=== PATIENT | female | born 1990 | race Caucasian/White ===

== ENCOUNTER → 2017-08-04 | Outpatient (CLI) | DX: N89.5 Stricture and atresia of vagina (principal) ==

== ENCOUNTER → 2017-08-10 | Day surgery (SDC) | payer BC ==
[~2017-08-10] VITALS: Ht 165.1 cm; Wt 42.7 kg
[~2017-08-10] MED LIST: ACETAMINOPHEN 1000 MG/100 ML 100 ML IV ONE; CHLORHEXIDINE GLUCONATE 2 % 1 PACK (2 CLOTHS) TOPICAL PRN; DEXAMETHASONE SOD PHOS 4 MG/ML VIAL IV ONE; DO NOT ADM ANY ANTICOAGULANT DRUGS PRN; KETOROLAC TROMETHAMINE 30 MG/ML (IVP) VIAL IV PUSH ONE; LACTATED RINGER'S 1000 ML IV PRN; LIDOCAINE 1%/EPINEPHrine 1:100,000 SOLN 20 ML VIAL ONE; LIDOCAINE HCL 1% PF 5 ML SYRINGE OTHER ONE; METOPROLOL TARTRATE 25 MG TAB PO PRN; MIDAZOLAM HCL 2 MG/2 ML VIAL ONE; ONDANSETRON HCL 4 MG/2 ML VIAL IV ONE; ONDANSETRON HCL 4 MG/2 ML VIAL IVP PRN; PHENYLEPH/NS 1000 MCG/10 ML SYR IV ONE; POVIDONE IODINE 5% (ANTISEPSIS KIT) 4 APPLICATIONS EACH NARE PRN; PROPOFOL 200 MG/20 ML AMP IV ONE; ROCURONIUM INJ 50 MG/5 ML SYRINGE IV PUSH ONE; SODIUM CHLORID 0.9% 500 ML IV PRN; SODIUM CHLORIDE 0.9% FLUSH 10 ML FLUSH IV FLUSH PRN; SODIUM CHLORIDE 0.9% FLUSH 10 ML FLUSH IV FLUSH SCH; SUCCINYLCHOLINE CHLORIDE 100 MG/5 ML SYRINGE IV PUSH ONE; VANC250C2 PO; diphenhydrAMINE HCL 25 MG CAP PO PRN; oxyCODONE/ACETAMINOPHEN 5 MG/325 MG TAB PO PRN
[2017-08-10 07:16] LABS: AUTOMATED NEUTROPHIL # 2.7 TH/MM3 (1.8-7.7); BASOPHIL % 0.7 % (0.0-2.0); EOSINOPHIL # 0.1 TH/MM3 (0-0.4); EOSINOPHIL % 2.6 % (0.0-4.0); HEMATOCRIT 38.7 % (35.0-46.0); HEMOGLOBIN 13.4 GM/DL (11.6-15.3); LYMPH % 34.8 % (9.0-44.0); LYMPHOCYTE # 1.8 TH/MM3 (1.0-4.8); MEAN CELL VOLUME 90.2 FL (80.0-100.0); MEAN CORPUSCULAR HEMOGLOBIN 31.2 PG (27.0-34.0); MEAN CORPUSCULAR HGB CONC 34.5 % (32.0-36.0); MEAN PLATELET VOLUME 7.2 FL (7.0-11.0); MONO % 10.4 % (0.0-8.0); MONOCYTE # 0.5 TH/MM3 (0-0.9); NEUT % 51.5 % (16.0-70.0); PLATELET COUNT 206 TH/MM3 (150-450); RED BLOOD COUNT 4.29 MIL/MM3 (4.00-5.30); RED CELL DISTRIBUTION WIDTH 13.4 % (11.6-17.2); WHITE BLOOD COUNT 5.2 TH/MM3 (4.0-11.0)
--- NOTE | 2017-08-10 08:32 | PD.OP ---
Operative Report Date of Surgery: August 10, 2017 Preoperative Diagnosis: 1. 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 Right Bartholin's cyst Postoperative Diagnosis: 1. Microperforate hymen 2. Right Bartholin's cyst Procedure: Evaluation under anesthesia, hymenectomy, incision and drainage and placement of a Word catheter of right Bartholin's cyst Anesthesia: General endotracheal Surgeon: Wade Lopez Gate Clerk(s): Danis Hartley OR scrub staff Resident Surgeon: None Operation and Findings: Findings: 1. Normal external female genitalia, microperforate hymen, 2-3 cm right Bartholin's cyst upon incision and drainage clear fluid from the Bartholin's cyst. No evidence of infection. After hymenectomy vagina able to accommodate 2 fingers adequately, normal appearing vaginal mucosa and cervix after hymenectomy performed Specimen: None Estimated blood loss: 50 cc Fluid replacement: 600 cc lactated Ringer's Urine output: 200 cc of urine Via Paris DVT prophylaxis: Sequential compression devices throughout the case Antibiotics: None required Counts: correct x2 Time out done: yes Disposition: Stable to PACU then home Indications: This patient is a 26-year-old G0 female who was seen in the outpatient setting due to inability to have intercourse or pass tampons due to a obstructed vagina, however she was able to have a cycle monthly since menarche, the office exam was difficult to assess but believed to be a semi- imperforate hymen, an MRI was performed and no vaginal septum or mullerian anomalies were appreciated and a right Bartholin's cyst was noted on the MRI. The patient was counseled for evaluation under anesthesia possible hymenectomy and possible right Bartholin's incision and drainage. Description of procedure: The patient was taken to the operating room and placed under general anesthesia, the perineum and the distal vagina were prepped and draped in a sterile fashion, a Paris was inserted, while under anesthesia it was obvious she had a microperforate hymen, using a scalpel a cruciate incision was made through the hymen and the residual hymen segments were removed, the cut edges were reapproximated with running 3-0 Vicryl and hemostasis was appreciated, the proximal vagina was then prepped with Betadine and irrigated and inspection and exam was performed and a normal proximal vagina and cervix were appreciated. A right Bartholin's cyst was confirmed, using a 15 blade it was incised on the medial border just inside the vagina and clear fluid drained spontaneously, a Word catheter was placed with 5 cc of NS in the balloon and the free end was tucked into the vagina. 5cc of 1% lidocaine with epinephrine was at the site of the Bartholin's I&D and hymenectomy for postoperative anesthesia. The surgical sites were hemostatic, the vagina was irrigated and the Paris was removed. The patient was awoken from anesthesia and transferred to PACU in stable condition Wade Lopez MD August 10, 2017 08:32
[2017-08-10 10:25] VITALS: BP 88/55; PULSE 76; RESP 16; TEMP 97; O2SAT 97
== END | disposition home or self-care (01) ==
LOC: HSDC 05:48 → EDUNIT# 07:30
PROVIDERS: ATTEND Obstetrics & Gynecology
DX: Q52.3 Imperforate hymen (principal); N75.0 Cyst of Bartholin's gland
CPT/HCPCS: 00940; 56420; 56700; 84702; 85025; J0131; J0330; J1100; J1885; J2250; J2370; J2405; J3010; J7120

== ENCOUNTER 2017-08-13 00:24 | Emergency (ER) | payer BC ==
[~2017-08-13] VITALS: Ht 162.6 cm; Wt 45.0 kg
[2017-08-13 00:27] VITALS: BP 129/61; PULSE 89; RESP 16; TEMP 98.4; O2SAT 98
[2017-08-13] MEDS ORDERED: SODIUM CHLOR 0.9% 1000 ML INJ 1,000 ML IV SCH (00:53)
--- NOTE | 2017-08-13 00:58 | PD ---
HPI Chief Complaint: Abdominal Pain Time Seen by Provider: 00:48 Travel History International Travel<30 days: No Contact w/Intl Traveler<30days: No Traveled to known affect area: No History of Present Illness HPI Patient comes in complaining of left lower quadrant area crampy pain, associated with diarrhea, patient was given IV antibiotic during the procedure. And she has had this diarrhea ever since... Per patient she has had at least 10 diarrhea movements. Denies any nausea or vomiting or fever. Patient had a hymenectomy as well as a Bartholin's cyst surgery. The patient's surgeon ordered the patient Flagyl however by the time she got the prescription the pharmacy was closed and she was unable to fill it. PFSH Past Medical History Cancer: No Cardiovascular Problems: Yes (IRREGULAR HEART RATE A CHILD) Diabetes: No Endocrine: No Genitourinary: Yes (FREQUENT UTI) Hepatitis: No Hiatal Hernia: No Immune Disorder: No Musculoskeletal: No Neurologic: No Psychiatric: No Reproductive: No Respiratory: No Thyroid Disease: No Tetanus Vaccination: Unknown Influenza Vaccination: No ?: Not LMP: 07/18/2017 Past Surgical History AICD: No Eye Surgery: Yes (EYE SURGERY ) Joint Replacement: No Oral Surgery: Yes Pacemaker: No Other Surgery: Yes (bartholone cyst removal) Social History Alcohol Use: No Tobacco Use: Yes Substance Use: No Allergies-Medications (Allergen,Severity, Reaction): Coded Allergies: ceftriaxone (Verified Allergy, Severe, Rash, 08/13/17) cephalexin (Verified Allergy, Severe, Rash, 08/13/17) Reported Meds & Prescriptions Reported Meds & Active Scripts Active Active Prescriptions or Reported Medications Unobtainable Review of Systems General / Constitutional: No: Fever Eyes: No: Visual changes HENT: No: Headaches Cardiovascular: No: Chest Pain or Discomfort Respiratory: No: Shortness of Breath Gastrointestinal: Positive: Diarrhea, Abdominal Pain Genitourinary: No: Dysuria Musculoskeletal: No: Pain Skin: No Rash Neurologic: No: Weakness Psychiatric: No: Depression Endocrine: No: Polydipsia Hematologic/Lymphatic: No: Easy Bruising Physical Exam Narrative GENERAL: SKIN: Warm and dry. HEAD: Atraumatic. Normocephalic. EYES: Pupils equal and round. No scleral icterus. No injection or drainage. ENT: No nasal bleeding or discharge. Mucous membranes pink and moist. NECK: Trachea midline. No JVD. CARDIOVASCULAR: Regular rate and rhythm. RESPIRATORY: No accessory muscle use. Clear to auscultation. Breath sounds equal bilaterally. GASTROINTESTINAL: Abdomen soft, mild tenderness to percussion over left lower quadrant. nondistended. MUSCULOSKELETAL: Extremities without clubbing, cyanosis, or edema. No obvious deformities. NEUROLOGICAL: Awake and alert. No obvious cranial nerve deficits. Motor grossly within normal limits. Five out of 5 muscle strength in the arms and legs. Normal speech. PSYCHIATRIC: Appropriate mood and affect; insight and judgment normal. Data Data Last Documented VS Vital Signs Date Time Temp Pulse Resp B/P (MAP) Pulse Ox O2 Delivery O2 Flow Rate FiO2 08/13/17 00:27 98.4 89 16 129/61 (83) 98 Orders Orders Complete Blood Count With Diff (08/13/17 00:53) Comprehensive Metabolic Panel (08/13/17 00:53) Lipase (08/13/17 00:53) Iv Access Insert/Monitor (08/13/17 00:53) Ecg Monitoring (08/13/17 00:53) Oximetry (08/13/17 00:53) NPO (08/13/17 00:53) Metronidazole 500 Mg Inj (Flagyl 500 Mg (08/13/17 01:00) Sodium Chlor 0.9% 1000 Ml Inj (Ns 1000 M (08/13/17 00:53) Vancomycin 25 Mg/Ml Liq (Vancomycin 25 M (08/13/17 01:00) Ondansetron Odt (Zofran Odt) (08/13/17 01:00) Vancomycin For Oral Use Only (Vancomycin (08/13/17 02:00) Labs Laboratory Tests Test 08/13/17 02:12 White Blood Count 7.4 TH/MM3 Red Blood Count 4.18 MIL/MM3 Hemoglobin 13.1 GM/DL Hematocrit 38.2 % Mean Corpuscular Volume 91.4 FL Mean Corpuscular Hemoglobin 31.2 PG Mean Corpuscular Hemoglobin Concent 34.2 % Red Cell Distribution Width 13.6 % Platelet Count 216 TH/MM3 Mean Platelet Volume 7.7 FL Neutrophils (%) (Auto) 53.5 % Lymphocytes (%) (Auto) 37.5 % Monocytes (%) (Auto) 7.1 % Eosinophils (%) (Auto) 1.5 % Basophils (%) (Auto) 0.4 % Neutrophils # (Auto) 4.0 TH/MM3 Lymphocytes # (Auto) 2.8 TH/MM3 Monocytes # (Auto) 0.5 TH/MM3 Eosinophils # (Auto) 0.1 TH/MM3 Basophils # (Auto) 0.0 TH/MM3 CBC Comment DIFF FINAL Differential Comment Blood Urea Nitrogen 14 MG/DL Creatinine 0.58 MG/DL Random Glucose 86 MG/DL Total Protein 7.0 GM/DL Albumin 3.6 GM/DL Calcium Level 8.6 MG/DL Alkaline Phosphatase 71 U/L Aspartate Amino Transf (AST/SGOT) 17 U/L Alanine Aminotransferase (ALT/SGPT) 10 U/L Total Bilirubin 0.2 MG/DL Sodium Level 142 MEQ/L Potassium Level 3.6 MEQ/L Chloride Level 109 MEQ/L Carbon Dioxide Level 25.0 MEQ/L Anion Gap 8 MEQ/L Estimat Glomerular Filtration Rate 126 ML/MIN Lipase 73 U/L [facility] Medical Decision Making Medical Screen Exam Complete: Yes Emergency Medical Condition: Yes Medical Record Reviewed: Yes Differential Diagnosis C. difficile colitis versus gastroenteritis versus enteritis versus pancreatitis Narrative Course CBC is without any leukocytosis, anemia or platelet dysfunction Normal kidney liver and pancreatic functions Normal electrolytes No evidence of any dehydration Diagnosis Primary Impression: Enteritis Patient Instructions: Clostridium Difficile Infection (ED), General Instructions Additional Instructions: It is best recommended that you take both the her Flagyl prescription as well as this Vancocin however if it is not affordable to you, the Flagyl alone should be able to work well. As previously mentioned please avoid taking Imodium and instead to use Pepto-Bismol Scripts Vancomycin (Vancomycin) 250 Mg Cap 250 MG PO QID for Infection for 10 Days, #40 CAP 0 Refills Prov: Dyllan Voss MD 08/13/17 Disposition: 01 DISCHARGE HOME Condition: Stable Dyllan Voss MD August 13, 2017 00:58
[2017-08-13] MEDS ORDERED: metroNIDAZOLE 500 MG INJ 100 ML IV ONE (01:00)
[2017-08-13] MEDS ORDERED: VANCOMYCIN 25 MG/ML SOLN 100 ML BOTTLE PO SCH (01:00)
[2017-08-13] MEDS ORDERED: ONDANSETRON ODT 4 MG TAB PO ONE (01:00)
[2017-08-13] MEDS ORDERED: VANCOMYCIN 500 MG VIAL (FOR ORAL USE ONLY) PO ONE (02:00)
[2017-08-13 02:28] LABS: BASOPHIL % 0.4 % (0.0-2.0); EOSINOPHIL # 0.1 TH/MM3 (0-0.4); EOSINOPHIL % 1.5 % (0.0-4.0); HEMATOCRIT 38.2 % (35.0-46.0); HEMOGLOBIN 13.1 GM/DL (11.6-15.3); LYMPH % 37.5 % (9.0-44.0); LYMPHOCYTE # 2.8 TH/MM3 (1.0-4.8); MEAN CELL VOLUME 91.4 FL (80.0-100.0); MEAN CORPUSCULAR HEMOGLOBIN 31.2 PG (27.0-34.0); MEAN CORPUSCULAR HGB CONC 34.2 % (32.0-36.0); MEAN PLATELET VOLUME 7.7 FL (7.0-11.0); MONO % 7.1 % (0.0-8.0); MONOCYTE # 0.5 TH/MM3 (0-0.9); NEUT % 53.5 % (16.0-70.0); PLATELET COUNT 216 TH/MM3 (150-450); RED BLOOD COUNT 4.18 MIL/MM3 (4.00-5.30); RED CELL DISTRIBUTION WIDTH 13.6 % (11.6-17.2); WHITE BLOOD COUNT 7.4 TH/MM3 (4.0-11.0)
[2017-08-13 02:43] LABS: ALBUMIN 3.6 GM/DL (3.4-5.0); ALT (GPT) 10 U/L (10-53); AST (GOT) 17 U/L (15-37); BLOOD UREA NITROGEN 14 MG/DL (7-18); CALCIUM 8.6 MG/DL (8.5-10.1); CHLORIDE 109 MEQ/L (98-107); CREATININE 0.58 MG/DL (0.50-1.00); GLOMERULAR FILTRATION RATE 126 ML/MIN (>89); GLUCOSE,RANDOM 86 MG/DL (74-106); SODIUM (NA) 142 MEQ/L (136-145)
[2017-08-13 02:46] LABS: ALKALINE PHOSPHATASE 71 U/L (45-117); TOTAL BILIRUBIN ADULT 0.2 MG/DL (0.2-1.0)
[2017-08-13] MEDS ORDERED: VANC250C2 PO (03:32)
== END 2017-08-13 03:56 | disposition home or self-care (01) ==
LOC: NEPE 00:24
DX: K52.9 Noninfective gastroenteritis and colitis, unspecified (principal); Z72.0 Tobacco use
CPT/HCPCS: 80053; 83690; 85025; 96365; 99284; J7030

== ENCOUNTER 2017-10-23 19:49 | Inpatient (IN) ==
--- NOTE | 2017-10-23 21:31 | ED ---
HPI General Chief complaint: Arrhythmia/Palpitations Stated complaint: cardiac problems Time Seen by Provider: 10/23/17 21:08 Source: patient Mode of arrival: ambulatory Limitations: no limitations History of Present Illness HPI narrative: 26yo F presents to the ED with c/o palpitations for 2 hours today. Said she has had mitral valve leak and aortic valve enlargement diagnosed on [facility] 4 years ago and was evaluated by repulping supervisor Dr. Monreal from [facility] but has not followed up with cardiology. Said she was suppose to have it surgically repaired but did not follow up with cardiology like she was suppose to. Said she has irregular heart rates but usually palpitations do not last this long. Said she felt dizzy and felt like she was going to pass out but did not. Denies any fever, chest pain, sob, n/v, abdominal, focal weakness. Does not know her family history as she was adopted. Related Data Allergies Allergy/AdvReac Type Severity Reaction Status Date / Time ceftriaxone Allergy Severe Rash Verified 08/13/17 00:26 cephalexin Allergy Severe Rash Verified 08/13/17 00:26 Review of Systems ROS Unobtainable All other systems reviewed negative except as stated in HPI [facility] Medical History Medical History Palpitations (Acute) Social History Social History Substance History: No History of Abuse Second Hand Smoke Exposure: Yes Smoking Status: Light tobacco smoker Tobacco Type: Cigarettes How Often Do You Have a Drink Containing Alcohol: Never Recent Travel in [place] within the Last 8 Weeks: No Recent Out of Country Travel within the Last 8 Weeks: No Immunization History Tetanus Immunization: Never Vaccinated Hx Influenza Vaccine This Season: Yes Exam Narrative Exam Narrative: GENERAL: 26yo F not in distress. SKIN: Focused skin assessment warm/dry. HEAD: Atraumatic. Normocephalic. EYES: Pupils equal and round. No scleral icterus. No injection or drainage. ENT: No nasal bleeding or discharge. Mucous membranes pink and moist. NECK: Trachea midline. No JVD. CARDIOVASCULAR: Regular rate and rhythm. No murmur appreciated. RESPIRATORY: No accessory muscle use. Clear to auscultation. Breath sounds equal bilaterally. GASTROINTESTINAL: Abdomen soft, non-tender, nondistended. MUSCULOSKELETAL: No obvious deformities. No clubbing. No cyanosis. No edema. NEUROLOGICAL: Awake and alert. No obvious cranial nerve deficits. Motor grossly within normal limits. Normal speech. PSYCHIATRIC: Appropriate mood and affect; insight and judgment normal. Course Initial Documented Vital Signs Temperature 99.2 F 10/23/17 20:54 Pulse Rate 65 10/23/17 20:54 Respiratory Rate 16 10/23/17 20:54 Blood Pressure 102/72 10/23/17 20:54 Last Documented Vital Signs Temperature 99.2 F 10/23/17 20:54 Pulse Rate 65 10/23/17 20:54 Respiratory Rate 16 10/23/17 20:54 Blood Pressure 102/72 10/23/17 20:54 Medical Decision Making [facility] Narrative Medical decision making narrative: 26yo F with history of mitral valve leak and enlarged aortic valve from [facility] 4 years ago here with c/o palpiations, dizziness and feeling like she was going to pass out. Pt has abnormal EKG and no prior EKG to compare to. Pt failed to follow up with cardiology as outpatient and since she is symptomatic now, feel that she would benefit from observation and cardiology consult. Labs reviewed, no leukocytosis. H/H normal. Troponin negative. BMP unremarkable. Will admit for observation and cardiology consult. Discussed with Dr. Valencia and accepted to her service for near syncope and abnormal EKG. Differential Diagnosis Differential Diagnosis: Near syncope vs. arrhythmia vs. valvular disease Lab Data Result diagrams: 10/23/17 21:45 10/23/17 21:45 Lab Results 10/23/17 10/23/17 10/23/17 Range/Units 21:45 21:45 21:45 WBC 7.1 (4.0-11.0) th/mm3 RBC 4.29 (4.00-5.30) mil/mm3 Hgb 13.2 (11.6-15.3) gm/dL Hct 38.6 (35.0-46.0) % MCV 89.8 (80.0-100.0) fL MCH 30.6 (27.0-34.0) pg MCHC 34.1 (32.0-36.0) % RDW 13.4 (11.6-17.2) % Plt Count 205 (150-450) th/mm3 MPV 7.6 (7.0-11.0) fL Neut % (Auto) 67.8 (16.0-70.0) % Lymph % (Auto) 23.7 (9.0-44.0) % [place] % (Auto) 7.0 (0.0-8.0) % Eos % (Auto) 1.0 (0.0-4.0) % Baso % (Auto) 0.5 (0.0-2.0) % Neut # (Auto) 4.8 (1.8-7.7) th/mm3 Lymph # (Auto) 1.7 (1.0-4.8) th/mm3 [place] # (Auto) 0.5 (0.0-0.9) th/mm3 Eos # (Auto) 0.1 (0.0-0.4) th/mm3 Baso # (Auto) 0.0 (0.0-0.2) th/mm3 WBC Differential . Differential Comment Auto diff final Sodium 140 (136-145) meq/L Potassium 3.7 (3.5-5.1) meq/L Chloride 109 H (98-107) meq/L Carbon Dioxide 23.4 (21.0-32.0) meq/L Anion Gap 8 (5-15) meq/L BUN 13 (7-18) mg/dL Creatinine 0.56 (0.50-1.00) mg/dL Estimated GFR Greater than 89 (>89) mL/min Random Glucose 79 (74-106) mg/dL Calcium 8.7 (8.5-10.1) mg/dL Troponin I Less than 0.02 L (0.02-0.05) ng/mL TSH 0.895 (0.358-3.740) uIU/mL ECG Data EKG Prior to Arrival: No Attestation: I personally reviewed and interpreted this ECG as follows: Prior ECG tracings: not available for review Interpretation: NSR 72bpm. Normal axis. Incomplete RBBB. TWI V2. Biphasic T wave in V3. Discharge Plan Discharge Disposition Patient Disposition: 30 Still Patient Discharge Details Diagnosis: Arrhythmia Physicians Team ED Provider: Gila Benedict Primary Care Provider: UNKNOWN, Attending Provider: Denise Valencia Status ED Status: Admitted Observation Patient
[2017-10-23 22:12] LABS: Hematocrit 38.6 % (35.0-46.0); Hemoglobin 13.2 gm/dL (11.6-15.3); Mean Corpuscular HGB Conc 34.1 % (32.0-36.0); Mean Corpuscular Hemoglobin 30.6 pg (27.0-34.0); Mean Corpuscular Volume 89.8 fL (80.0-100.0); Platelet Count 205 th/mm3 (150-450); Red Blood Count 4.29 mil/mm3 (4.00-5.30); Red Cell Distribution Width 13.4 % (11.6-17.2); White Blood Count 7.1 th/mm3 (4.0-11.0)
[2017-10-23 22:13] LABS: Baso % (Auto) 0.5 % (0.0-2.0); Eos # (Auto) 0.1 th/mm3 (0.0-0.4); Lymph # (Auto) 1.7 th/mm3 (1.0-4.8); Lymph % (Auto) 23.7 % (9.0-44.0); Mean Platelet Volume 7.6 fL (7.0-11.0); Mono # (Auto) 0.5 th/mm3 (0.0-0.9); Neut # (Auto) 4.8 th/mm3 (1.8-7.7); Neut % (Auto) 67.8 % (16.0-70.0)
[2017-10-23 22:41] LABS: Anion Gap 8 meq/L (5-15); Blood Urea Nitrogen 13 mg/dL (7-18); Calcium 8.7 mg/dL (8.5-10.1); Carbon Dioxide 23.4 meq/L (21.0-32.0); Chloride 109 meq/L (98-107); Glomerular Filtration Rate Greater Than 89 mL/min (>89); Glucose,Random 79 mg/dL (74-106); Potassium 3.7 meq/L (3.5-5.1); Sodium 140 meq/L (136-145)
[2017-10-23 22:51] LABS: Thyroid Stimulating Hormone 0.895 uIU/mL (0.358-3.740)
[2017-10-24] MEDS ORDERED: Bisacodyl 10 MG Supp RECTAL PRN (00:20)
--- NOTE | 2017-10-24 00:24 | P.HP ---
History of Present Illness Service: [facility] Primary Care Physician: UNKNOWN History of Present Illness: 26-year-old female with a past medical history significant for mitral valve prolapse and a "abnormal EKG" 4 years ago presents the emergency department for evaluation of palpitations. The patient reports she has palpitations for approximately 2 hours, felt faint and decided to come to the emergency room for further evaluation. The patient had a MOIS[facility] 4 years ago which was normal and she was instructed to follow-up with the junior legal secretary however she was never able to do so. The patient denies having any chest pain or shortness of breath. No abdominal pain. No nausea/vomiting. Review of Systems Denies fever or chills Denies blurry vision, otorrhea, rhinorrhea Denies sore throat and cough No chest pain No shortness of breath or wheezing No abdominal pain Denies constipation/diarrhea/nausea/vomiting Denies muscle pain Denies focal weakness No rashes PMFSH - History History Provided By: Patient - Medical History Medical History: Medical History (Last Updated 10/24/17 @ 00:23 by Denise Valencia MD) Palpitations Septal defect - Surgical History Surgical History: Surgical History (Last Updated 10/24/17 @ 00:23 by Denise Valencia MD) Hx of eye surgery - Family History Family History: Family History (Last Updated 10/24/17 @ 00:23 by Denise Valencia MD) Other Adopted - Tobacco History Second Hand Smoke Exposure: Yes Tobacco Use In Past 30 Days: Yes Smoking Status: Light tobacco smoker Tobacco Type: Cigarettes - Alcohol History How Often Do You Have a Drink Containing Alcohol: Never - Substance Use History Substance History: No History of Abuse - Travel History Recent Travel in the [facility] Within the Last 8 Weeks: No Recent Travel Out of the Country Within the Last 8 Weeks: No - Immunization History Tetanus Immunization: Never Vaccinated Hx Influenza Vaccine This Season: Yes Medications and Allergies Allergies Allergy/AdvReac Type Severity Reaction Status Date / Time ceftriaxone Allergy Severe Rash Verified 08/13/17 00:26 cephalexin Allergy Severe Rash Verified 08/13/17 00:26 Exam Vital signs: Vital Signs 10/23/17 20:54 Temperature 99.2 F Pulse Rate 65 Respiratory Rate 16 Blood Pressure 102/72 Intake & Output 10/23/17 10/23/17 10/24/17 06:59 18:59 06:59 Weight 43.998 kg Narrative: Gen.: No acute distress Head: Normocephalic. Atraumatic. EENT: Pupils equal round and reactive to light. Nose without drainage. Airway intact. Throat without injection. Cardiovascular: Regular rate and rhythm. No murmurs, rubs or gallops. Respiratory: Lungs clear to auscultation bilaterally. No wheezes or rhonchi. Abdomen: Soft, nontender, nondistended. No peritoneal signs. Musculoskeletal: No gross deformities. No edema. Skin: No obvious rashes or erythema. Neuro: Sensory and motor grossly intact. Cranial nerves II through XII grossly intact. Psych: Appropriate mood and affect Results - Labs CBC & Chem 7: 10/23/17 21:45 10/23/17 21:45 Labs: Laboratory Results - last 24 hr 10/23/17 10/23/17 10/23/17 21:45 21:45 21:45 WBC 7.1 RBC 4.29 Hgb 13.2 Hct 38.6 MCV 89.8 MCH 30.6 MCHC 34.1 RDW 13.4 Plt Count 205 MPV 7.6 Neut % (Auto) 67.8 Lymph % (Auto) 23.7 [place] % (Auto) 7.0 Eos % (Auto) 1.0 Baso % (Auto) 0.5 Neut # (Auto) 4.8 Lymph # (Auto) 1.7 [place] # (Auto) 0.5 Eos # (Auto) 0.1 Baso # (Auto) 0.0 WBC Differential . Differential Comment Auto diff final Sodium 140 Potassium 3.7 Chloride 109 H Carbon Dioxide 23.4 Anion Gap 8 BUN 13 Creatinine 0.56 Estimated GFR Greater than 89 Random Glucose 79 Calcium 8.7 Troponin I Less than 0.02 L TSH 0.895 Caprini VTE Risk Assessment Caprini VTE Risk Assessment: No/Low Risk (score <= 1) Caprini Risk Assessment Model: Point Value = 1 Point Value = 2 Point Value = 3 Point Value = 5 Age 41-60 Minor surgery BMI > 25 kg/m2 Swollen legs Varicose veins or History of unexplained or recurrent spontaneous Oral contraceptives or hormone replacement Sepsis (< 1 month) Serious lung disease, including pneumonia (< 1 month) Abnormal pulmonary function Acute myocardial infarction Congestive heart failure (< 1 month) History of inflammatory bowel disease Medical patient at bed rest Age 61-74 Arthroscopic surgery Major open surgery (> 45 min) Laparoscopic surgery (> 45 min) Malignancy Confined to bed (> 72 hours) Immobilizing plaster cast Central venous access Age >= 75 History of VTE Family history of VTE Factor V Leiden Prothrombin [id number] Lupus anticoagulant Anticardiolipin antibodies Elevated serum homocysteine Heparin-induced thrombocytopenia Other congenital or acquired thrombophilia Stroke (< 1 month) Elective arthroplasty Hip, pelvis, or leg fracture Acute spinal cord injury (< 1 month) Prophylaxis Regimen: Total Risk Factor Score Risk Level Prophylaxis Regimen 0-1 Low Early ambulation 2 Moderate Order ONE of the following: *Sequential Compression Device (SCD) *Heparin 5000 units SQ BID 3-4 Higher Order ONE of the following medications: *Heparin 5000 units SQ TID *Enoxaparin/Lovenox 40 mg SQ daily (WT < 150 kg, CrCl > 30 mL/min) *Enoxaparin/Lovenox 30 mg SQ daily (WT < 150 kg, CrCl > 10-29 mL/min) *Enoxaparin/Lovenox 30 mg SQ BID (WT < 150 kg, CrCl > 30 mL/min) AND/OR *Sequential Compression Device (SCD) 5 or more Highest Order ONE of the following medications: *Heparin 5000 units SQ TID (Preferred with Epidurals) *Enoxaparin/Lovenox 40 mg SQ daily (WT < 150 kg, CrCl > 30 mL/min) *Enoxaparin/Lovenox 30 mg SQ daily (WT < 150 kg, CrCl > 10-29 mL/min) *Enoxaparin/Lovenox 30 mg SQ BID (WT < 150 kg, CrCl > 30 mL/min) AND *Sequential Compression Device (SCD) Assessment and Plan - Plan Assessment/plan: 1. Palpitations/lightheadedness/MVP EKG significant for complete right bundle branch block and nonspecific ST changes, personally reviewed Cardiology consulted, appreciate recommendations Echo pending Telemetry FEN N.p.o. Electrolytes: Monitor and replete as needed
[2017-10-24] MEDS: Sod Chloride 0.9% Inj 1,000 ML IV.CONT SCH ×2 (01:35→11:33)
[2017-10-24] MEDS: Acetaminophen 325 MG Tablet PO PRN (05:26)
[2017-10-24 07:38] LABS: Baso % (Auto) 0.5 % (0.0-2.0); Eos # (Auto) 0.2 th/mm3 (0.0-0.4); Eos % (Auto) 4.4 % (0.0-4.0); Hematocrit 37.4 % (35.0-46.0); Hemoglobin 12.6 gm/dL (11.6-15.3); Lymph # (Auto) 1.5 th/mm3 (1.0-4.8); Lymph % (Auto) 27.7 % (9.0-44.0); Mean Corpuscular HGB Conc 33.6 % (32.0-36.0); Mean Corpuscular Hemoglobin 30.3 pg (27.0-34.0); Mean Corpuscular Volume 90.1 fL (80.0-100.0); Mean Platelet Volume 7.5 fL (7.0-11.0); Mono # (Auto) 0.6 th/mm3 (0.0-0.9); Mono % (Auto) 10.5 % (0.0-8.0); Neut % (Auto) 56.9 % (16.0-70.0); Platelet Count 204 th/mm3 (150-450); Red Blood Count 4.15 mil/mm3 (4.00-5.30); Red Cell Distribution Width 13.6 % (11.6-17.2); White Blood Count 5.3 th/mm3 (4.0-11.0)
[2017-10-24 08:07] LABS: Anion Gap 7 meq/L (5-15); Blood Urea Nitrogen 13 mg/dL (7-18); Calcium 8.3 mg/dL (8.5-10.1); Carbon Dioxide 23.6 meq/L (21.0-32.0); Chloride 110 meq/L (98-107); Glomerular Filtration Rate Greater Than 89 mL/min (>89); Glucose,Random 81 mg/dL (74-106); Potassium 3.5 meq/L (3.5-5.1); Sodium 141 meq/L (136-145)
--- NOTE | 2017-10-24 08:58 | P.CONCA ---
<Lul Sheikh - Last Filed: 10/24/17 08:52> History of Present Illness Primary Care Provider: UNKNOWN History of Present Illness: 26-year-old female who presented with lightheadedness, dizziness, and irregular heartbeat. Patient states that yesterday she had sudden onset of sensation of irregular heartbeat. Denies racing heart sensation. History of palpitations in the past, but those felt more like skipped beats rather than irregular sensation. She had associated lightheadedness and dizziness. Symptoms lasted approximately 2 hours and then resolved. She previously saw a accounting/finance tutor approximately 4 years ago in [place]. She was told at that time that she had a leaky heart valve that would need replacement, probably by the time she was 30. EKG shows right bundle branch block. The patient denies any chest pain , lower extremity swelling, orthopnea. The patient states that she gets dyspneic on exertion when walking up half a flight of stairs. She reports a history of "hole in the heart" as a child that spontaneously closed. Telemetry unremarkable overnight except for occasional PAC seen. Review of Systems All other systems reviewed negative except as stated [facility] - History History Provided By: Patient - Medical History Medical History: Medical History (Last Updated 10/24/17 @ 00:23 by Denise Valencia MD) Palpitations Septal defect - Surgical History Surgical History: Surgical History (Last Updated 10/24/17 @ 00:23 by Denise Valencia MD) Hx of eye surgery - Family History Family History: Family History (Last Updated 10/24/17 @ 00:23 by Denise Valencia MD) Other Adopted - Tobacco History Second Hand Smoke Exposure: Yes Tobacco Use In Past 30 Days: Yes Smoking Status: Heavy tobacco smoker Tobacco Type: Cigarettes - Alcohol History How Often Do You Have a Drink Containing Alcohol: Monthly or less - Substance Use History Substance History: No History of Abuse - Travel History Recent Travel in the [place] Within the Last 8 Weeks: No Recent Travel Out of the Country Within the Last 8 Weeks: No - Immunization History Tetanus Immunization: Never Vaccinated Hx Influenza Vaccine This Season: Yes Medications and Allergies Allergies Allergy/AdvReac Type Severity Reaction Status Date / Time ceftriaxone Allergy Severe Rash Verified 08/13/17 00:26 cephalexin Allergy Severe Rash Verified 08/13/17 00:26 Home Medications Medication Instructions Recorded Confirmed Type No Known Home Medications 10/24/17 10/24/17 History Active Medications: Active Medications Acetaminophen (Tylenol) 650 mg PO Q4H PRN PRN Reason: Temp > 100.4/pain Last Admin: 10/24/17 05:26 Dose: 650 mg Al Hydroxide/Mg Hydroxide (Milk Of Magnesia Liq) 30 ml PO Q12H PRN PRN Reason: Mild Constipation Bisacodyl (Dulcolax Supp) 10 mg RECTAL DAILY PRN PRN Reason: SEVERE CONSITIPATION Sodium Chloride (Ns Inj) 1,000 mls @ 100 mls/hr IV.CONT .Q10H DILLAN Last Admin: 10/24/17 01:35 Dose: 100 mls/hr Lactulose (Lactulose Liq) 30 ml PO DAILY PRN PRN Reason: SEVERE CONSITIPATION Sennosides (Senokot) 17.2 mg PO Q12H PRN PRN Reason: Moderate Constipation Exam Vital signs: Vital Signs 10/23/17 20:54 10/24/17 00:00 10/24/17 01:29 Temperature 99.2 F Pulse Rate 65 70 76 Respiratory Rate 16 16 16 Blood Pressure 102/72 101/71 103/66 Pulse Oximetry 98 10/24/17 02:11 10/24/17 04:00 10/24/17 07:05 Temperature 98.1 F Pulse Rate 72 70 80 Respiratory Rate 16 Blood Pressure 103/62 Pulse Oximetry 10/24/17 07:54 Temperature 98.3 F Pulse Rate 72 Respiratory Rate 16 Blood Pressure 102/60 Pulse Oximetry 98 Intake & Output 10/23/17 10/24/17 10/24/17 18:59 06:59 18:59 Weight 97 lb Narrative: GENERAL: Well-developed well-nourished. In no acute distress. NECK: No carotid bruits. No JVD. CARDIOVASCULAR: Regular rate and rhythm with occasional ectopy noted. 2/6 systolic murmur best appreciated at the apex. RESPIRATORY: No accessory muscle use. Clear to auscultation. Breath sounds equal bilaterally. MUSCULOSKELETAL: No clubbing or cyanosis. No edema. NEUROLOGICAL: Awake and alert. Normal speech. Results 10/24/17 07:15 10/24/17 07:15 Cardiac Enzymes 10/23/17 Range/Units 21:45 Troponin I Less than 0.02 L (0.02-0.05) ng/mL CBC 10/23/17 10/24/17 Range/Units 21:45 07:15 WBC 7.1 5.3 (4.0-11.0) th/mm3 RBC 4.29 4.15 (4.00-5.30) mil/mm3 Hgb 13.2 12.6 (11.6-15.3) gm/dL Hct 38.6 37.4 (35.0-46.0) % Plt Count 205 204 (150-450) th/mm3 Neut # (Auto) 4.8 3.0 (1.8-7.7) th/mm3 Lymph # (Auto) 1.7 1.5 (1.0-4.8) th/mm3 Collier # (Auto) 0.5 0.6 (0.0-0.9) th/mm3 Eos # (Auto) 0.1 0.2 (0.0-0.4) th/mm3 Baso # (Auto) 0.0 0.0 (0.0-0.2) th/mm3 Comprehensive Metabolic Panel 10/23/17 10/24/17 Range/Units 21:45 07:15 Sodium 140 141 (136-145) meq/L Potassium 3.7 3.5 (3.5-5.1) meq/L Chloride 109 H 110 H (98-107) meq/L Carbon Dioxide 23.4 23.6 (21.0-32.0) meq/L BUN 13 13 (7-18) mg/dL Creatinine 0.56 0.51 (0.50-1.00) mg/dL Calcium 8.7 8.3 L (8.5-10.1) mg/dL Intake and Output 10/23/17 10/24/17 10/24/17 22:59 06:59 14:59 Other: Weight 97 lb Assessment and Plan - Plan 26-year-old female who presented with lightheadedness, dizziness, and irregular heartbeat. Patient states that yesterday she had sudden onset of sensation of irregular heartbeat. Denies racing heart sensation. History of palpitations in the past, but those felt more like skipped beats rather than irregular sensation. She had associated lightheadedness and dizziness. Symptoms lasted approximately 2 hours and then resolved. Palpitations: Symptoms not consistent with previous benign ectopy. Possible SVT. Check echo. Monitor on telemetry. BP will not tolerate beta-casandra at this time. Vagal maneuver counseling. Heart murmur: Possibly more. Possibly symptomatic. Follow-up echocardiogram results. Discussed Condition With: Patient, hospitalist, Dr. Carpenter <Twan Carpenter - Last Filed: 10/24/17 10:58> History of Present Illness Primary Care Provider: UNKNOWN [facility] - Medical History Medical History: Medical History (Last Updated 10/24/17 @ 00:23 by Denise Valencia MD) Palpitations Septal defect - Surgical History Surgical History: Surgical History (Last Updated 10/24/17 @ 00:23 by Denise Valencia MD) Hx of eye surgery - Family History Family History: Family History (Last Updated 10/24/17 @ 00:23 by Denise Valencia MD) Other Adopted Medications and Allergies Active Medications: Active Medications Acetaminophen (Tylenol) 650 mg PO Q4H PRN PRN Reason: Temp > 100.4/pain Last Admin: 10/24/17 05:26 Dose: 650 mg Al Hydroxide/Mg Hydroxide (Milk Of Magnesia Liq) 30 ml PO Q12H PRN PRN Reason: Mild Constipation Bisacodyl (Dulcolax Supp) 10 mg RECTAL DAILY PRN PRN Reason: SEVERE CONSITIPATION Sodium Chloride (Ns Inj) 1,000 mls @ 100 mls/hr IV.CONT .Q10H DILLAN Last Admin: 10/24/17 01:35 Dose: 100 mls/hr Lactulose (Lactulose Liq) 30 ml PO DAILY PRN PRN Reason: SEVERE CONSITIPATION Sennosides (Senokot) 17.2 mg PO Q12H PRN PRN Reason: Moderate Constipation Exam Vital signs: Vital Signs 10/23/17 20:54 10/24/17 00:00 10/24/17 01:29 Temperature 99.2 F Pulse Rate 65 70 76 Respiratory Rate 16 16 16 Blood Pressure 102/72 101/71 103/66 Pulse Oximetry 98 10/24/17 02:11 10/24/17 04:00 10/24/17 07:05 Temperature 98.1 F Pulse Rate 72 70 80 Respiratory Rate 16 Blood Pressure 103/62 Pulse Oximetry 10/24/17 07:54 Temperature 98.3 F Pulse Rate 72 Respiratory Rate 16 Blood Pressure 102/60 Pulse Oximetry 98 Intake & Output 10/23/17 10/24/17 10/24/17 18:59 06:59 18:59 Weight 43.998 kg Results 10/24/17 07:15 10/24/17 07:15 Cardiac Enzymes 10/23/17 Range/Units 21:45 Troponin I Less than 0.02 L (0.02-0.05) ng/mL CBC 10/23/17 10/24/17 Range/Units 21:45 07:15 WBC 7.1 5.3 (4.0-11.0) th/mm3 RBC 4.29 4.15 (4.00-5.30) mil/mm3 Hgb 13.2 12.6 (11.6-15.3) gm/dL Hct 38.6 37.4 (35.0-46.0) % Plt Count 205 204 (150-450) th/mm3 Neut # (Auto) 4.8 3.0 (1.8-7.7) th/mm3 Lymph # (Auto) 1.7 1.5 (1.0-4.8) th/mm3 Collier # (Auto) 0.5 0.6 (0.0-0.9) th/mm3 Eos # (Auto) 0.1 0.2 (0.0-0.4) th/mm3 Baso # (Auto) 0.0 0.0 (0.0-0.2) th/mm3 Comprehensive Metabolic Panel 10/23/17 10/24/17 Range/Units 21:45 07:15 Sodium 140 141 (136-145) meq/L Potassium 3.7 3.5 (3.5-5.1) meq/L Chloride 109 H 110 H (98-107) meq/L Carbon Dioxide 23.4 23.6 (21.0-32.0) meq/L BUN 13 13 (7-18) mg/dL Creatinine 0.56 0.51 (0.50-1.00) mg/dL Calcium 8.7 8.3 L (8.5-10.1) mg/dL Intake and Output 10/23/17 10/24/17 10/24/17 22:59 06:59 14:59 Other: Weight 43.998 kg Assessment and Plan - Attending Attestation murmur - not terribly impressive by examination. await 2d echo results. possible event monitor and low dose BB on DC
--- NOTE | 2017-10-24 10:14 | P.PNADD ---
Addendum to Inpatient Note Reason for Addendum: Additional Documentation Additional information: Ms. Martino was admitted due to palpitation, dizziness, lightheadedness that lasted for almost two hours. She has a history of MVP. Cardiology consulted. EKG shows RBBB. Cardiology recommended Echo. Likely discharge later today or in the AM. TSH within normal range (0.895). Will check Mg level. Currently hemodynamically stable. Will start patient on a regular diet.
[2017-10-24 13:22] LABS: Magnesium 2.2 mg/dL (1.5-2.5)
[2017-10-24 13:31] LABS: Thyroid Stimulating Hormone 3.23 uIU/mL (0.358-3.740)
--- NOTE | 2017-10-24 16:16 | ECHRPT ---
Indication: CHEST PAIN CONCLUSIONS Normal left ventricular size. Wall thickness is normal. The left ventricular systolic function is hyperdynamic with an estimated ejection fraction in the ra nge of 65- 70%. There is a flattened septum in diastole consistent with right ventricle volume overload. The right ventricle is moderately to severely dilated. A secundum atrial septal defect is present. ASD is measuring at 1.7 cm. The calculated shunt fraction by Qp/Qs is greater than 1.5 consistent with a shunt volume which is d oes appear to be hemodynamically significant. Trace mitral valve regurgitation. There is mild tricuspid valve regurgitation. The estimated pulmonary arterial pressure is 35 mmHg. Trivial pulmonary valve regurgitation. There is less than 50% respiratory change in dimension of the inferior vena cava (abnormal) BP: / HR: Rhythm: Sinus Technical Quality:Fair FINDINGS LEFT VENTRICLE Normal left ventricular size. Wall thickness is normal. The left ventricular systolic function is hyperdynamic with an estimated ejection fraction in the ra nge of 65- 70%. There is a flattened septum in diastole consistent with right ventricle volume overload. RIGHT VENTRICLE The right ventricle is moderately to severely dilated. LEFT ATRIUM The left atrial size is normal. RIGHT ATRIUM The right atrial size is normal. ATRIAL SEPTUM A secundum atrial septal defect is present. ASD is measuring at 1.7 cm. The calculated shunt fraction by Qp/Qs is greater than 1.5 consistent with a shunt volume which is d oes appear to be hemodynamically significant. AORTA The aortic root and proximal ascending aorta are not well visualized. MITRAL VALVE Trace mitral valve regurgitation. AORTIC VALVE Trileaflet aortic valve. No aortic valve stenosis or regurgitation. TRICUSPID VALVE There is mild tricuspid valve regurgitation. The estimated pulmonary arterial pressure is 35 mmHg. PULMONARY VALVE Trivial pulmonary valve regurgitation. VESSELS There is less than 50% respiratory change in dimension of the inferior vena cava (abnormal) PERICARDIUM No pericardial effusion. Twan Carpenter MD, FACC (Electronically Signed) Final Date:24 October 2017 16:15
--- NOTE | 2017-10-24 23:21 | ECG ---
Date Performed: 10/23/2017 Time Performed: 20:53:39 PTAGE: 26 years EKG: Sinus rhythm WITH OCCASIONAL ECTOPIC PREMATURE COMPLEXES POSSIBLE LEFT ATRIAL ENLARGEMENT MARKED RIGHT AXIS DEVIA TION INCOMPLETE RIGHT BUNDLE BRANCH BLOCK ST DEVIATION AND MODERATE T-WAVE ABNORMALITY, CONSIDER ANTE RIOR ISCHEMIA ABNORMAL ECG NO PREVIOUS TRACING DOCTOR: Leoncio Moore Interpretating Date/Time 10/24/2017 23:21:04
--- NOTE | 2017-10-25 08:06 | P.PNCA ---
<Lul Sheikh - Last Filed: 10/25/17 08:03> Subjective Interval history: Still with occasional palpitations. No lightheadedness, dizziness, chest pain, shortness of breath. Physical Exam Vital signs: Vital Signs 10/24/17 12:00 10/24/17 16:00 10/24/17 20:00 Temperature 98.1 F 98.2 F 98 F Pulse Rate 63 69 73 Respiratory Rate 16 18 17 Blood Pressure 91/57 L 95/61 L 93/59 L Pulse Oximetry 99 99 99 10/25/17 00:00 10/25/17 00:16 10/25/17 04:00 Temperature 98.1 F 97.8 F Pulse Rate 75 71 66 Respiratory Rate 17 17 Blood Pressure 93/63 L 95/63 L Pulse Oximetry 99 99 10/25/17 06:00 10/25/17 07:33 Temperature Pulse Rate 69 77 Respiratory Rate Blood Pressure Pulse Oximetry Intake & Output 10/24/17 10/25/17 10/25/17 18:59 06:59 18:59 Intake Total 1000 / 1000 500 / 500 Balance 1000 / 1000 500 / 500 Intake: IV 1000 / 1000 500 / 500 NS Inj 1,000 ML @ 100 mls/hr IV 1000 / 1000 500 / 500 .CONT .Q10H DILLAN Rx#:[id number] Other: # Voids 1 1 Narrative: GENERAL: Well-developed well-nourished. In no acute distress. NECK: No carotid bruits. No JVD. CARDIOVASCULAR: Regular rate and rhythm with occasional ectopy. 1/6 systolic murmur at the apex. RESPIRATORY: No accessory muscle use. Clear to auscultation. Breath sounds equal bilaterally. MUSCULOSKELETAL: No clubbing or cyanosis. No edema. NEUROLOGICAL: Awake and alert. Normal speech. Assessment and Plan - Plan 26-year-old female who presented with lightheadedness, dizziness, and irregular heartbeat. Patient states that yesterday she had sudden onset of sensation of irregular heartbeat. Denies racing heart sensation. History of palpitations in the past, but those felt more like skipped beats rather than irregular sensation. She had associated lightheadedness and dizziness. Symptoms lasted approximately 2 hours and then resolved. Palpitations: Symptoms not consistent with previous benign ectopy. Possible SVT. Monitor on telemetry. BP will not tolerate beta-casandra at this time. Vagal maneuver counseling. ASD: Large 1.7 cm ASD with moderate-severe RV dilation. N.p.o. for MOISES today, further disposition pending results. Discussed Condition With: Patient, Dr. Carpenter <Twan Carpenter - Last Filed: 10/25/17 08:39> Physical Exam Vital signs: Vital Signs 10/24/17 12:00 10/24/17 16:00 10/24/17 20:00 Temperature 98.1 F 98.2 F 98 F Pulse Rate 63 69 73 Respiratory Rate 16 18 17 Blood Pressure 91/57 L 95/61 L 93/59 L Pulse Oximetry 99 99 99 10/25/17 00:00 10/25/17 00:16 10/25/17 04:00 Temperature 98.1 F 97.8 F Pulse Rate 75 71 66 Respiratory Rate 17 17 Blood Pressure 93/63 L 95/63 L Pulse Oximetry 99 99 10/25/17 06:00 10/25/17 07:33 10/25/17 08:00 Temperature 97.9 F Pulse Rate 69 77 80 Respiratory Rate 16 Blood Pressure 93/63 L Pulse Oximetry 98 Intake & Output 10/24/17 10/25/17 10/25/17 18:59 06:59 18:59 Intake Total 1000 / 1000 500 / 500 Balance 1000 / 1000 500 / 500 Intake: IV 1000 / 1000 500 / 500 NS Inj 1,000 ML @ 100 mls/hr IV 1000 / 1000 500 / 500 .CONT .Q10H DILLAN Rx#:[id number] Other: # Voids 1 1 Assessment and Plan - Attending Attestation ASD RV dilation Qp:Qs > 1.5 PHTN mild needs ASD repaired MOISES today to decide percutaneous closure vs surgical will discuss with radiology, she needs ECG-gated MDCT to rule out partial anomalous pulmonary venous return prior to percutaneous closure.
--- NOTE | 2017-10-25 13:19 | CT ---
EXAM DATE: 10/25/2017 12:59 PM EDT AGE/SEX: 26 years / Female INDICATIONS: Evaluate for partial anomalous pulmonary vein. And states she has a hole and the heart and has intermittent chest pain. CLINICAL DATA: This is the patient's initial encounter. Patient reports that signs and symptoms have been present for 2 days and indicates a pain score of 0/10. MEDICAL/SURGICAL HISTORY: . None. RADIATION DOSE: 10.39 CTDI (mGy) COMPARISON: No prior exams available for comparison. TECHNIQUE: Multiple contiguous axial images were obtained through the chest during bolus infusion of 80 ml Omnipaque 350 (iohexol) nonionic water-soluble contrast as a single exam dose. Images were obtained in suspended respiration using multiple row detector helical technique. Using automated exp osure control and adjustment of the mA and/or kV according to patient size, radiation dose was kept a s low as reasonably achievable to obtain optimal diagnostic quality images. DICOM format image data is available electronically for review and comparison. FINDINGS: Lungs: The lungs are symmetrically aerated. No infiltrates or nodular densities are seen. Mediastinum: There is good visualization of the great vessels of the middle mediastinum. No evidenc e of mediastinal or hilar adenopathy/mass. The brachiocephalic vein is unremarkable with no abnormal venous communication. The pulmonary veins communicate normally with the left atrium. There is no abno rmal communication with the right atrium or coronary sinus. The heart size is at the upper limits of normal. Pleurae: No evidence of focal thickening or pleural effusion. Axillae: Unremarkable. Bony Structures: Unremarkable. Miscellaneous: The examination was extended to include the upper abdomen, and both adrenal glands ar e normal in size and configuration. CONCLUSION: 1. No evidence to suggest partial anomalous pulmonary vein. 2. The heart size is at the upper limits of normal. Electronically signed by: Sebas Wiley MD 10/25/2017 1:18 PM EDT
[2017-10-25] MEDS ORDERED: Chlorhexidine Gluconate 2% 1 Pack (2 Cloths) TOPICAL SCH (15:30)
[2017-10-25] MEDS ORDERED: Metoprolol Tartrate 25 MG Tablet PO SCH (15:30)
[2017-10-25] MEDS ORDERED: Sodium Chlor 0.9% Inj 500 ML IV.SIG SCH (16:00)
--- NOTE | 2017-10-25 17:06 | P.PN ---
Subjective Interval history: Follow up for palpitation, dizziness, lightheadedness. Patient is currently doing well. Denies any chest pain, shortness of breath, fever or chills. She is waiting for CT scan to determine if she has anomalous pulmonary vein today. She is also scheduled for MOISES. No fever or chills. Physical Exam Vital signs: Vital Signs 10/24/17 20:00 10/25/17 00:00 10/25/17 00:16 Temperature 98 F 98.1 F Pulse Rate 73 75 71 Respiratory Rate 17 17 Blood Pressure 93/59 L 93/63 L Pulse Oximetry 99 99 10/25/17 04:00 10/25/17 06:00 10/25/17 07:33 Temperature 97.8 F Pulse Rate 66 69 77 Respiratory Rate 17 Blood Pressure 95/63 L Pulse Oximetry 99 10/25/17 08:00 10/25/17 12:00 Temperature 97.9 F 97.9 F Pulse Rate 80 70 Respiratory Rate 16 16 Blood Pressure 93/63 L 91/58 L Pulse Oximetry 98 99 Intake & Output 10/24/17 10/25/17 10/25/17 18:59 06:59 18:59 Intake Total 1000 / 1000 500 / 500 Balance 1000 / 1000 500 / 500 Intake: IV 1000 / 1000 500 / 500 NS Inj 1,000 ML @ 100 mls/hr IV 1000 / 1000 500 / 500 .CONT .Q10H DILLAN Rx#:[id number] Other: # Voids 1 1 Narrative: GENERAL: Alert, oriented 3, NAD. SKIN: Warm and dry. HEAD: Normocephalic. EYES: No scleral icterus. No injection or drainage. NECK: Supple, trachea midline. No JVD or lymphadenopathy. CARDIOVASCULAR: Regular rate and rhythm without gallops, or rubs. Systolic murmur present. RESPIRATORY: Breath sounds equal bilaterally. No accessory muscle use. GASTROINTESTINAL: Abdomen soft, non-tender, nondistended. MUSCULOSKELETAL: No cyanosis, or edema. BACK: Nontender without obvious deformity. No CVA tenderness. Results - Labs CBC & Chem 7: 10/24/17 07:15 10/24/17 07:15 - Imaging Impressions Chest CT 10/25/17 00:00 CONCLUSION: 1. No evidence to suggest partial anomalous pulmonary vein. 2. The heart size is at the upper limits of normal. Assessment and Plan - Assessment (1) ASD (atrial septal defect) Code(s): Q21.1 - Atrial septal defect Status: Acute - Plan Ms. Martino is a pleasant 26 year old female with a history of mitral valve prolapse who was admitted to the hospital due to palpitation, dizziness and lightheadedness. Cardiology was consulted for further evaluation. Patient EKG showed right bundle branch block. Echocardiogram showed EF 65-70%, right ventricular volume overload and dilatation. ASD measuring 1.7 cm. QP/QS ratio was greater than 1.5. Pulmonary artery pressure was calculated to be 35 mmHg. Palpitation -Patient's symptom was thought to be related to SVT and or PACs -Due to low blood pressure, Beta casandra was not initiated. ASD Right ventricular dilation Right ventricular volume overload - Echo shows RV volume overload. Qp/Qs > 1.5. - CT chest did not reveal any evidence of anomalous pulm vein. - MOISES scheduled today. - Patient will likely need ASD repair - percutaneous vs. surgical approach. Full code. Ambulation.
[2017-10-25] MEDS: Acetaminophen 325 MG Tablet PO PRN (18:56)
[2017-10-26] MEDS: Acetaminophen 325 MG Tablet PO PRN ×2 (07:53→20:32)
--- NOTE | 2017-10-26 07:59 | P.PNCA ---
<Raza Sahucamila Wyatt - Last Filed: 10/26/17 08:06> Subjective Interval history: complaining of mild headache since yesterday. no chest pain, sob or palpitations. Physical Exam Vital signs: Vital Signs 10/25/17 08:00 10/25/17 12:00 10/25/17 20:00 Temperature 97.9 F 97.9 F 97.4 F L Pulse Rate 80 70 70 Respiratory Rate 16 16 17 Blood Pressure 93/63 L 91/58 L 94/58 L Pulse Oximetry 98 99 99 10/25/17 22:52 10/26/17 03:38 10/26/17 04:08 Temperature 98.4 F 98.3 F Pulse Rate 67 70 66 Respiratory Rate 17 17 Blood Pressure 91/55 L Pulse Oximetry 98 99 10/26/17 04:20 10/26/17 07:04 Temperature 98.3 F Pulse Rate 76 Respiratory Rate 16 Blood Pressure 90/54 L 90/59 L Pulse Oximetry 97 Intake & Output 10/25/17 10/26/17 10/26/17 18:59 06:59 18:59 Other: # Voids 2 Date of Last Bowel Movement 10/25/17 Narrative: GENERAL: Alert, oriented 3, NAD. SKIN: Warm and dry. HEAD: Normocephalic. EYES: No scleral icterus. No injection or drainage. NECK: Supple, trachea midline. No JVD or lymphadenopathy. CARDIOVASCULAR: Regular rate and rhythm without gallops, or rubs. Systolic murmur present. RESPIRATORY: Breath sounds equal bilaterally. No accessory muscle use. GASTROINTESTINAL: Abdomen soft, non-tender, nondistended. MUSCULOSKELETAL: No cyanosis, or edema. Assessment and Plan - Assessment (1) ASD (atrial septal defect) Code(s): Q21.1 - Atrial septal defect Status: Acute - Plan 26-year-old female who presented with lightheadedness, dizziness, and irregular heartbeat. Patient states she had sudden onset of sensation of irregular heartbeat. History of palpitations in the past, but those felt more like skipped beats rather than irregular sensation. ASD: Large 1.7 cm ASD with moderate-severe RV dilation. large ASD seen on MOISES, will require surgical repair. Chest CT did not show anomalous pulmonary vein no event on telemetry. <Twan Carpenter - Last Filed: 10/26/17 10:13> Physical Exam Vital signs: Vital Signs 10/25/17 12:00 10/25/17 20:00 10/25/17 22:52 Temperature 97.9 F 97.4 F L 98.4 F Pulse Rate 70 70 67 Respiratory Rate 16 17 17 Blood Pressure 91/58 L 94/58 L 91/55 L Pulse Oximetry 99 99 98 10/26/17 03:38 10/26/17 04:08 10/26/17 04:20 Temperature 98.3 F Pulse Rate 70 66 Respiratory Rate 17 Blood Pressure 90/54 L Pulse Oximetry 99 10/26/17 07:04 10/26/17 09:31 Temperature 98.3 F Pulse Rate 76 75 Respiratory Rate 16 Blood Pressure 90/59 L Pulse Oximetry 97 Intake & Output 10/25/17 10/26/17 10/26/17 18:59 06:59 18:59 Other: # Voids 2 Date of Last Bowel Movement 10/25/17 Assessment and Plan - Assessment (1) ASD (atrial septal defect) Code(s): Q21.1 - Atrial septal defect Status: Acute - Attending Attestation CT surgery to evaluate today
--- NOTE | 2017-10-26 08:07 | ECHRPT ---
Indication: ASD CONCLUSIONS Normal left ventricular size and wall thickness. The left ventricular systolic function is normal wi th an estimated ejection fraction in the range of 60-65%. Left ventricular diastolic function parameters a re normal. The right ventricle is severely dilated. The right ventricular systoilc function is moderately decreased. The right atrial size is moderately dilated. A secundum atrial septal defect is present measuring 2.2 cm is present with bidirectional shunting. There is mild tricuspid valve regurgitation. There is estimated mild pulmonary hypertension present (range 40-50 mmHg). BP: / HR: Rhythm: Technical Quality: Medications Complications Proc. Components The patient was brought to the diagnostic imaging area in a fasting state after o btaining an informed consent. The patient was premedicated with IV Versed and IV Fentanyl. The microstrategy architect developer ior pharynx was sprayed with Cetacaine spray and the patient was administered viscous Xylocaine 2 %. The MOISES probe was passed into the posterior pharynx , mid-esophagus, distal esophagus, and gastric fundus. MOISES was performed at multiple levels. The patient tolerated the procedure well and there were no complications. The patient was transferred to the floor in satisfactory condition.. FINDINGS LEFT VENTRICLE Normal left ventricular size and wall thickness. The left ventricular systolic function is normal wi th an estimated ejection fraction in the range of 60-65%. Left ventricular diastolic function parameters a re normal. RIGHT VENTRICLE The right ventricle is severely dilated. The right ventricular systoilc function is moderately decreased. LEFT ATRIUM The left atrial size is normal. RIGHT ATRIUM The right atrial size is moderately dilated. ATRIAL APPENDAGES Normal left atrial appendage size with no evidence of thrombus formation. ATRIAL SEPTUM A secundum atrial septal defect is present measuring 2.2 cm is present with bidirectional shunting. AORTA The aortic root and proximal ascending aorta are normal in size on limited imaging. MITRAL VALVE Mild mitral valve regurgitation. AORTIC VALVE Trileaflet aortic valve. No aortic valve stenosis or regurgitation. TRICUSPID VALVE There is mild tricuspid valve regurgitation. There is estimated mild pulmonary hypertension present (range 40-50 mmHg). VESSELS The inferior vena cava is normal in size. PULMONARY VALVE The pulmonary valve is not well visualized. PERICADIUM No pericardial effusion. Twan Carpenter MD, FACC (Electronically Signed) Final Date:26 October 2017 08:07
--- NOTE | 2017-10-26 13:14 | P.PN ---
Subjective Interval history: Follow up for palpitation, dizziness, lightheadedness. Patient is currently doing well. No acute concerns. She is being evaluated by Cardiothoracic surgery for ASD repair. Physical Exam Vital signs: Vital Signs 10/25/17 20:00 10/25/17 22:52 10/26/17 03:38 Temperature 97.4 F L 98.4 F 98.3 F Pulse Rate 70 67 70 Respiratory Rate 17 17 17 Blood Pressure 94/58 L 91/55 L Pulse Oximetry 99 98 99 10/26/17 04:08 10/26/17 04:20 10/26/17 07:04 Temperature 98.3 F Pulse Rate 66 76 Respiratory Rate 16 Blood Pressure 90/54 L 90/59 L Pulse Oximetry 97 10/26/17 09:31 10/26/17 11:31 Temperature 98.2 F Pulse Rate 75 73 Respiratory Rate 16 Blood Pressure 91/61 L Pulse Oximetry 97 Intake & Output 10/25/17 10/26/17 10/26/17 18:59 06:59 18:59 Other: # Voids 2 Date of Last Bowel Movement 10/25/17 Narrative: GENERAL: Alert, oriented 3, NAD. SKIN: Warm and dry. HEAD: Normocephalic. EYES: No scleral icterus. No injection or drainage. NECK: Supple, trachea midline. No JVD or lymphadenopathy. CARDIOVASCULAR: Regular rate and rhythm without gallops, or rubs. Systolic murmur present. RESPIRATORY: Breath sounds equal bilaterally. No accessory muscle use. GASTROINTESTINAL: Abdomen soft, non-tender, nondistended. MUSCULOSKELETAL: No cyanosis, or edema. Results - Labs CBC & Chem 7: 10/24/17 07:15 10/24/17 07:15 - Imaging Impressions Chest CT 10/25/17 00:00 CONCLUSION: 1. No evidence to suggest partial anomalous pulmonary vein. 2. The heart size is at the upper limits of normal. Assessment and Plan - Assessment (1) ASD (atrial septal defect) Code(s): Q21.1 - Atrial septal defect Status: Acute - Plan Ms. Martino is a pleasant 26 year old female with a history of mitral valve prolapse who was admitted to the hospital due to palpitation, dizziness and lightheadedness. Cardiology was consulted for further evaluation. Patient EKG showed right bundle branch block. Echocardiogram showed EF 65-70%, right ventricular volume overload and dilatation. ASD measuring 1.7 cm. QP/QS ratio was greater than 1.5. Pulmonary artery pressure was calculated to be 35 mmHg. Palpitation -Patient's symptom was thought to be related to SVT and or PACs -Due to low blood pressure, Beta casandra was not initiated. ASD Right ventricular dilation Right ventricular volume overload Pulmonary hypertension (40-45mmHg). - Echo shows RV volume overload. Qp/Qs > 1.5. - CT chest did not reveal any evidence of anomalous pulm vein. - MOISES shows ASD 2.2 cm with bidirectional shunting. - CV surgery is evaluating for Surgical ASD repair. In-patient. Patient should be transferred to the med-surg floor or CPCU. Full code. Ambulation.
--- NOTE | 2017-10-27 07:33 | MB ---
cc: Darcie Mackey MD DATE: 10/26/2017 HISTORY OF PRESENT ILLNESS: This is a 26-year-old female who presented to the emergency department, reported palpitations while at work, felt very faint. 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 Supposedly had a history of some type of mitral valve prolapse and was told that she also had a septal defect, which was told it was closed as a child. She states she was born in [facility], adopted. Apparently did not have a lot of healthcare following as a child. She did admit to having vaccines as needed as a child, but to her understanding that the septal defect had closed. She was seen by approximately 4 years ago, was told she had a mitral valve prolapse and that the septal defect at that time had also closed. Prior to that, she had been in the midst of changing a physician when they noted the heart murmur. She has been getting palpitations on a regular basis, mainly at night and at rest, they last seconds. She states it feels like an air bubble. She rode her bike to work on Monday and when she developed palpitations which lasted over 2 hours, felt faint. She did not have anybody to bring her, so they called the ambulance. She underwent CT chest, which showed no evidence to suggest partial anomalous pulmonary vein. Heart size normal limits. She underwent transesophageal echo preceded by a regular trans-echocardiogram. The ejection fraction 60-65%, atrial septal defect present measuring 2.2 cm with bidirectional shunting. Mild tricuspid valve regurgitation, with some mild pulmonary hypertension of 40-50 mmHg. Right ventricle was severely dilated and the right ventricular systolic function moderately decreased. We were consulted in regards to atrial septal defect. PAST MEDICAL HISTORY: Includes history of an atrial septal defect which to her understanding was told it was closed. She is at the end of her period at this time, which started on Monday. She states that she is not sexually active. PAST SURGICAL HISTORY: Include bilateral eye surgery due to a lazy eye. She has had recently removed and Bartholin cyst removal 09/10. ALLERGIES: INCLUDE CEFTRIAXONE AND KEFLEX. MEDICATIONS: She is on no medications. FAMILY HISTORY: Adopted. SOCIAL HISTORY: She has a roommate. Occasional tobacco. No illicit drugs. No alcohol. 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 REVIEW OF SYSTEMS: GENERAL: No night sweats, fever, heat and cold intolerance. SKIN: No psoriasis, itching or hives. HEENT: No blurred vision, hearing loss. RESPIRATORY: Positive for some shortness of breath. CARDIOVASCULAR: As above in the HPI. GASTROINTESTINAL: No diarrhea, vomiting. GENITOURINARY: No burning, frequency, urgency. CENTRAL NERVOUS SYSTEM: No history of TIA, CVA, seizure disorder. ENDOCRINOLOGY: No hypothyroidism or diabetes. PHYSICAL EXAMINATION: VITAL SIGNS: Blood pressure 94/60, heart rate of 80, afebrile. BMI of 16. Her weight is 44 kg. GENERAL: The patient is awake, alert, in no acute distress. HEENT: Head is normocephalic, atraumatic. Pupils equal and reactive. Oral mucosa pink, moist. NECK: Supple. No JVD. HEART: Sounds S1, S2. Regular rate and rhythm. Grade 2-3/6 systolic murmur best noted at left sternal border. LUNGS: Clear to auscultation. No wheezes, rales or rhonchi. ABDOMEN: Soft, nontender. No masses or organomegaly. EXTREMITIES: No cyanosis, clubbing or edema. LABORATORY DATA: Shows hemoglobin of 12, hematocrit of 37, white cell count of 5.3, platelet count of 204. Sodium 141, potassium 3.5, BUN of 13, creatinine 0.51, magnesium 2.2. Troponin less than 0.02. TSH of 3.2. IMPRESSION AND PLAN: This 26-year-old female who presented with lightheadedness, dizziness, palpitations, history of atrial septal defect. The transesophageal echo is now showing 2.2 cm with bidirectional shunting. Mild tricuspid valve regurgitation. Ejection fraction 60%. Estimated pulmonary artery pressures are 35 mmHg. The echocardiograms will be evaluated by Dr. Darcie Mackey. We have consulted case management and Plastics Repairer to evaluate if the patient would be a candidate for patient assistance and, if not, that the patient would need to stay in the hospital and will evaluate for surgery on Monday for the planning for atrial septal defect repair on Monday, the , following further discussion with the patient. Dictated by ROSELYN Whiting MD SHELLY Coleman/PAVAN , 05:14 PM , 05:25 PM
--- NOTE | 2017-10-27 11:31 | P.PNIM ---
Subjective Interval history: 26-year-old female with a past medical history significant for mitral valve prolapse and a "abnormal EKG" 4 years ago presents the emergency department for evaluation of palpitations. The patient reports she has palpitations for approximately 2 hours, felt faint and decided to come to the emergency room for further evaluation. The patient had a MOISES 4 years ago which was normal and she was instructed to follow-up with the precast concrete products installer however she was never able to do so. The patient denies having any chest pain or shortness of breath. No abdominal pain. No nausea/vomiting. Ms. Martino was admitted due to palpitation, dizziness, lightheadedness that lasted for almost two hours. She has a history of MVP. Cardiology consulted. EKG shows RBBB. Cardiology recommended Echo. Likely discharge later today or in the AM. TSH within normal range (0.895). Will check Mg level. Currently hemodynamically stable. Will start patient on a regular diet. 8-8 Follow up for palpitation, dizziness, lightheadedness. Patient is currently doing well. Denies any chest pain, shortness of breath, fever or chills. She is waiting for CT scan to determine if she has anomalous pulmonary vein today. She is also scheduled for MOISES. No fever or chills. 8-9 Follow up for palpitation, dizziness, lightheadedness. Patient is currently doing well. No acute concerns. She is being evaluated by Cardiothoracic surgery for ASD repair. 8-10 [facility] FOR SURGERY ON MONDAY FOR ASD REPAIR NO NEW COMPLAINTS AWAIT SURGERY Physical Exam Vital signs: Vital Signs 10/26/17 11:31 10/26/17 15:21 10/26/17 20:00 Temperature 98.2 F 98.6 F 99.3 F Pulse Rate 73 81 83 Respiratory Rate 16 16 16 Blood Pressure 91/61 L 94/62 L 93/61 L Pulse Oximetry 97 99 99 10/27/17 00:00 10/27/17 04:00 10/27/17 08:00 Temperature 98.5 F 98.4 F 97.9 F Pulse Rate 73 74 76 Respiratory Rate 16 17 16 Blood Pressure 98/70 L 93/59 L 95/64 L Pulse Oximetry 100 99 99 Narrative: GENERAL: Alert, oriented 3, NAD. SKIN: Warm and dry. HEAD: Normocephalic. EYES: No scleral icterus. No injection or drainage. NECK: Supple, trachea midline. No JVD or lymphadenopathy. CARDIOVASCULAR: Regular rate and rhythm without gallops, or rubs. Systolic murmur present. /6 RESPIRATORY: Breath sounds equal bilaterally. No accessory muscle use. GASTROINTESTINAL: Abdomen soft, non-tender, nondistended. MUSCULOSKELETAL: No cyanosis, or edema. Insight and judgment is good Mood behaviors appropriate Neuro: Cranial nerves II through XII are grossly intact deep tendon reflexes 2- 4 upper extremity and lower extremity bilaterally moves all 4 extremities motor strength is 5 out of 5 in upper extremity and lower extremities bilaterally Results - Labs CBC & Chem 7: 10/24/17 07:15 10/24/17 07:15 Assessment and Plan - Assessment (1) ASD (atrial septal defect) Code(s): Q21.1 - Atrial septal defect Status: Acute - Plan Ms. Martino is a pleasant 26 year old female with a history of mitral valve prolapse who was admitted to the hospital due to palpitation, dizziness and lightheadedness. Cardiology was consulted for further evaluation. Patient EKG showed right bundle branch block. Echocardiogram showed EF 65-70%, right ventricular volume overload and dilatation. ASD measuring 1.7 cm. QP/QS ratio was greater than 1.5. Pulmonary artery pressure was calculated to be 35 mmHg. Palpitation -Patient's symptom was thought to be related to SVT and or PACs -Due to low blood pressure, Beta casandra was not initiated. ASD Right ventricular dilation Right ventricular volume overload Pulmonary hypertension (40-45mmHg). - Echo shows RV volume overload. Qp/Qs > 1.5. - CT chest did not reveal any evidence of anomalous pulm vein. - MOISES shows ASD 2.2 cm with bidirectional shunting. - CV surgery is evaluating for Surgical ASD repair. In-patient. Patient should be transferred to the med-surg floor or CPCU. Full code. Ambulation. For surgery on Monday of the ASD repair per cardiovascular surgery Code Status: Full code Discussed Condition With: RN and patient and case management and cardiovascular surgery Discharge Planning: Pending clearance by cardiovascular surgery for discharge
--- NOTE | 2017-10-27 16:21 | P.PNCV ---
- Note Subjective/Hospital Course: 26-year-old female who presented to the emergency department, reported palpitations while at work, felt very faint. 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 Supposedly had a history of some type of mitral valve prolapse and was told that she also had a septal defect, which was told it was closed as a child. She states she was born in [facility], adopted. Apparently did not have a lot of healthcare following as a child. She did admit to having vaccines as needed as a child, but to her understanding that the septal defect had closed. She was seen by _Jocelin ____ approximately 4 years ago, was told she had a mitral valve prolapse and that the septal defect at that time had also closed. Prior to that, she had been in the midst of changing a physician when they noted the heart murmur. She has been getting palpitations on a regular basis, mainly at night and at rest, they last seconds. She states it feels like an air bubble. She rode her bike to work on Monday and when she developed palpitations which lasted over 2 hours, felt faint. She did not have anybody to bring her, so they called the ambulance. She underwent CT chest, which showed no evidence to suggest partial anomalous pulmonary vein. Heart size normal limits. She underwent transesophageal echo preceded by a regular trans-echocardiogram. The ejection fraction 60-65%, atrial septal defect present measuring 2.2 cm with bidirectional shunting. Mild tricuspid valve regurgitation, with some mild pulmonary hypertension of 40-50 mmHg. Right ventricle was severely dilated and the right ventricular systolic function moderately decreased. We were consulted in regards to atrial septal defect. 10/27 echo has been reviewed by Dr Mackey plan is for ASD repair on Monday Objective: Vital Signs - 24 hr 10/26/17 20:00 10/27/17 00:00 10/27/17 04:00 Temperature 99.3 F 98.5 F 98.4 F Pulse Rate 83 73 74 Respiratory Rate 16 16 17 Blood Pressure 93/61 L 98/70 L 93/59 L Pulse Oximetry 99 100 99 10/27/17 07:15 10/27/17 08:00 10/27/17 12:00 Temperature 97.9 F 98.0 F Pulse Rate 74 76 69 Respiratory Rate 16 16 Blood Pressure 95/64 L 95/60 L Pulse Oximetry 99 100 10/27/17 15:56 Temperature 98.1 F Pulse Rate 80 Respiratory Rate 16 Blood Pressure 105/68 Pulse Oximetry 98 GENERAL: SKIN: Warm and dry. HEAD: Normocephalic. EYES: No scleral icterus. No injection or drainage. NECK: Supple, trachea midline. No JVD or lymphadenopathy. CARDIOVASCULAR: Regular rate and rhythm without gallops, or rubs, + SM RESPIRATORY: Breath sounds equal bilaterally. No accessory muscle use. GASTROINTESTINAL: Abdomen soft, non-tender, nondistended. MUSCULOSKELETAL: No cyanosis, or edema. BACK: Nontender without obvious deformity. No CVA tenderness. Result Diagrams: 10/24/17 07:15 10/24/17 07:15 - Plan (1) Arrhythmia (2) ASD (atrial septal defect) Plan: for surgery on Monday (1) Arrhythmia Qualifiers: Arrhythmia type: unspecified cardiac arrhythmia Qualified Code(s): I49.9 - Cardiac arrhythmia, unspecified
[2017-10-28 04:35] LABS: Baso % (Auto) 0.6 % (0.0-2.0); Eos # (Auto) 0.2 th/mm3 (0.0-0.4); Eos % (Auto) 4.4 % (0.0-4.0); Hematocrit 39.7 % (35.0-46.0); Hemoglobin 13.5 gm/dL (11.6-15.3); INR 1.1 Ratio; Lymph # (Auto) 1.8 th/mm3 (1.0-4.8); Lymph % (Auto) 37.7 % (9.0-44.0); Mean Corpuscular HGB Conc 33.9 % (32.0-36.0); Mean Corpuscular Hemoglobin 31.1 pg (27.0-34.0); Mean Corpuscular Volume 91.7 fL (80.0-100.0); Mean Platelet Volume 8.3 fL (7.0-11.0); Mono # (Auto) 0.4 th/mm3 (0.0-0.9); Mono % (Auto) 8.4 % (0.0-8.0); Neut # (Auto) 2.3 th/mm3 (1.8-7.7); Neut % (Auto) 48.9 % (16.0-70.0); Platelet Count 212 th/mm3 (150-450); Prothrombin Time 11.3 sec (9.8-11.6); Red Blood Count 4.32 mil/mm3 (4.00-5.30); Red Cell Distribution Width 13.3 % (11.6-17.2); White Blood Count 4.7 th/mm3 (4.0-11.0)
[2017-10-28 05:08] LABS: Albumin 3.7 g/dL (3.4-5.0); Anion Gap 8 meq/L (5-15); Aspartate Aminotransferase 11 U/L (15-37); Blood Urea Nitrogen 16 mg/dL (7-18); Calcium 8.4 mg/dL (8.5-10.1); Carbon Dioxide 25.7 meq/L (21.0-32.0); Chloride 107 meq/L (98-107); Glomerular Filtration Rate Greater Than 89 mL/min (>89); Glucose,Random 82 mg/dL (74-106); Magnesium 2.3 mg/dL (1.5-2.5); Sodium 141 meq/L (136-145); Triglycerides 90 mg/dL (42-150)
[2017-10-28 05:11] LABS: Alanine Aminotransferase 11 U/L (10-53); Alkaline Phosphatase 77 U/L (45-117); Chol/HDL Ratio 2.73 Ratio; Cholesterol 108 mg/dL (120-200); HDL Cholesterol 39.5 mg/dL (40.0-60.0); LDL Cholesterol,Calculated 51 mg/dL (0-99); Phosphorus 3.6 mg/dL (2.5-4.9)
[2017-10-28 12:52] LABS: Hemoglobin A1c 5.4 % (4.3-6.0)
--- NOTE | 2017-10-28 14:40 | P.PNIM ---
Subjective Interval history: 26-year-old female with a past medical history significant for mitral valve prolapse and a "abnormal EKG" 4 years ago presents the emergency department for evaluation of palpitations. The patient reports she has palpitations for approximately 2 hours, felt faint and decided to come to the emergency room for further evaluation. The patient had a MOISES 4 years ago which was normal and she was instructed to follow-up with the vice president of product marketing however she was never able to do so. The patient denies having any chest pain or shortness of breath. No abdominal pain. No nausea/vomiting. Ms. Martino was admitted due to palpitation, dizziness, lightheadedness that lasted for almost two hours. She has a history of MVP. Cardiology consulted. EKG shows RBBB. Cardiology recommended Echo. Likely discharge later today or in the AM. TSH within normal range (0.895). Will check Mg level. Currently hemodynamically stable. Will start patient on a regular diet. 8-8 Follow up for palpitation, dizziness, lightheadedness. Patient is currently doing well. Denies any chest pain, shortness of breath, fever or chills. She is waiting for CT scan to determine if she has anomalous pulmonary vein today. She is also scheduled for MOISES. No fever or chills. 8-9 Follow up for palpitation, dizziness, lightheadedness. Patient is currently doing well. No acute concerns. She is being evaluated by Cardiothoracic surgery for ASD repair. 8- JAIL[facility] FOR SURGERY ON MONDAY FOR ASD REPAIR NO NEW COMPLAINTS AWAIT SURGERY 10-28 NO NEW COMPLAINTS HAPPY TO MOVE OUT OF [facility] WANTS TO SHOWER JAILYN RN AND PT SURGERY MONDAY Physical Exam Vital signs: Vital Signs 10/27/17 15:56 10/27/17 19:27 10/27/17 22:55 Temperature 98.1 F 98.1 F Pulse Rate 80 77 74 Respiratory Rate 16 18 Blood Pressure 105/68 98/59 L Pulse Oximetry 98 99 10/27/17 23:00 10/28/17 03:00 10/28/17 04:00 Temperature 98.1 F Pulse Rate 70 73 77 Respiratory Rate 14 Blood Pressure 92/61 L Pulse Oximetry 99 10/28/17 04:23 10/28/17 08:00 10/28/17 12:00 Temperature 98.0 F 97.9 F Pulse Rate 77 80 70 Respiratory Rate 16 16 Blood Pressure 98/53 L 100/66 Pulse Oximetry 100 98 Intake & Output 10/27/17 10/28/17 10/28/17 18:59 06:59 18:59 Weight 67 kg Other: # Voids 3 Date of Last Bowel Movement 10/27/17 10/27/17 10/27/17 Narrative: GENERAL: Alert, oriented 3, NAD. SKIN: Warm and dry. HEAD: Normocephalic. EYES: No scleral icterus. No injection or drainage. NECK: Supple, trachea midline. No JVD or lymphadenopathy. CARDIOVASCULAR: Regular rate and rhythm without gallops, or rubs. Systolic murmur present. 05/23 RESPIRATORY: Breath sounds equal bilaterally. No accessory muscle use. GASTROINTESTINAL: Abdomen soft, non-tender, nondistended. MUSCULOSKELETAL: No cyanosis, or edema. Insight and judgment is good Mood behaviors appropriate Neuro: Cranial nerves II through XII are grossly intact deep tendon reflexes 2- 4 upper extremity and lower extremity bilaterally moves all 4 extremities motor strength is 5 out of 5 in upper extremity and lower extremities bilaterally Results - Labs CBC & Chem 7: 10/28/17 03:02 10/28/17 03:02 Laboratory Results - last 24 hr 10/28/17 10/28/17 10/28/17 03:02 03:02 03:02 WBC 4.7 RBC 4.32 Hgb 13.5 Hct 39.7 MCV 91.7 MCH 31.1 MCHC 33.9 RDW 13.3 Plt Count 212 MPV 8.3 Neut % (Auto) 48.9 Lymph % (Auto) 37.7 [place] % (Auto) 8.4 H Eos % (Auto) 4.4 H Baso % (Auto) 0.6 Neut # (Auto) 2.3 Lymph # (Auto) 1.8 [place] # (Auto) 0.4 Eos # (Auto) 0.2 Baso # (Auto) 0.0 WBC Differential . Differential Comment Auto diff final PT 11.3 INR 1.1 Sodium Potassium Chloride Carbon Dioxide Anion Gap BUN Creatinine Estimated GFR Random Glucose Hemoglobin A1c 5.4 Calcium Phosphorus Magnesium Total Bilirubin AST ALT Alkaline Phosphatase Total Protein Albumin Triglycerides Cholesterol LDL Cholesterol, Calc HDL Cholesterol Cholesterol/HDL Ratio Free T4 Beta HCG, Quant 10/28/17 03:02 WBC RBC Hgb Hct MCV MCH MCHC RDW Plt Count MPV Neut % (Auto) Lymph % (Auto) [place] % (Auto) Eos % (Auto) Baso % (Auto) Neut # (Auto) Lymph # (Auto) [place] # (Auto) Eos # (Auto) Baso # (Auto) WBC Differential Differential Comment PT INR Sodium 141 Potassium 4.0 Chloride 107 Carbon Dioxide 25.7 Anion Gap 8 BUN 16 Creatinine 0.65 Estimated GFR Greater than 89 Random Glucose 82 Hemoglobin A1c Calcium 8.4 L Phosphorus 3.6 Magnesium 2.3 Total Bilirubin 0.3 AST 11 L ALT 11 Alkaline Phosphatase 77 Total Protein 7.0 Albumin 3.7 Triglycerides 90 Cholesterol 108 L LDL Cholesterol, Calc 51 HDL Cholesterol 39.5 L Cholesterol/HDL Ratio 2.73 Free T4 1.00 Beta HCG, Quant Less than 1 Assessment and Plan - Assessment (1) ASD (atrial septal defect) Code(s): Q21.1 - Atrial septal defect Status: Acute - Plan Ms. Martino is a pleasant 26 year old female with a history of mitral valve prolapse who was admitted to the hospital due to palpitation, dizziness and lightheadedness. Cardiology was consulted for further evaluation. Patient EKG showed right bundle branch block. Echocardiogram showed EF 65-70%, right ventricular volume overload and dilatation. ASD measuring 1.7 cm. QP/QS ratio was greater than 1.5. Pulmonary artery pressure was calculated to be 35 mmHg. Palpitation -Patient's symptom was thought to be related to SVT and or PACs -Due to low blood pressure, Beta casandra was not initiated. ASD Right ventricular dilation Right ventricular volume overload Pulmonary hypertension (40-45mmHg). - Echo shows RV volume overload. Qp/Qs > 1.5. - CT chest did not reveal any evidence of anomalous pulm vein. - MOISES shows ASD 2.2 cm with bidirectional shunting. - CV surgery is evaluating for Surgical ASD repair. In-patient. Patient should be transferred to the med-surg floor or CPCU. Full code. Ambulation. For surgery on Monday of the ASD repair per cardiovascular surgery Code Status: FULL CODE Discussed Condition With: JAILYN RN AND PT Discharge Planning: Pending clearance by cardiovascular surgery for discharge
--- NOTE | 2017-10-29 09:25 | P.PNIM ---
Subjective Interval history: 26-year-old female with a past medical history significant for mitral valve prolapse and a "abnormal EKG" 4 years ago presents the emergency department for evaluation of palpitations. The patient reports she has palpitations for approximately 2 hours, felt faint and decided to come to the emergency room for further evaluation. The patient had a MOISES 4 years ago which was normal and she was instructed to follow-up with the warehouse loader however she was never able to do so. The patient denies having any chest pain or shortness of breath. No abdominal pain. No nausea/vomiting. Ms. Martino was admitted due to palpitation, dizziness, lightheadedness that lasted for almost two hours. She has a history of MVP. Cardiology consulted. EKG shows RBBB. Cardiology recommended Echo. Likely discharge later today or in the AM. TSH within normal range (0.895). Will check Mg level. Currently hemodynamically stable. Will start patient on a regular diet. 8-8 Follow up for palpitation, dizziness, lightheadedness. Patient is currently doing well. Denies any chest pain, shortness of breath, fever or chills. She is waiting for CT scan to determine if she has anomalous pulmonary vein today. She is also scheduled for MOISES. No fever or chills. 8-9 Follow up for palpitation, dizziness, lightheadedness. Patient is currently doing well. No acute concerns. She is being evaluated by Cardiothoracic surgery for ASD repair. 8-10 DW [facility] FOR SURGERY ON MONDAY FOR ASD REPAIR NO NEW COMPLAINTS AWAIT SURGERY 10-28 NO NEW COMPLAINTS HAPPY TO MOVE OUT OF CDU WANTS TO SHOWER JAILYN RN AND PT SURGERY 10-29 FOR SURGERY TOMORROW DW RN AND PT FOLLOW UP ASD NEEDING REPAIR NO SOB, NO CHEST PAIN, NO PALPITATIONS, NO NAUSEA, NO VOMITING Physical Exam Vital signs: Vital Signs 10/28/17 12:00 10/28/17 16:00 10/28/17 16:09 Temperature 97.9 F 97.4 F L Pulse Rate 70 68 69 Respiratory Rate 16 18 Blood Pressure 100/66 94/58 L Pulse Oximetry 98 100 10/28/17 20:00 10/28/17 21:00 10/28/17 22:00 Temperature 97.8 F Pulse Rate 69 76 70 Respiratory Rate 18 Blood Pressure 97/60 L Pulse Oximetry 100 10/28/17 23:00 08/12/18 00:00 10/29/17 01:00 Temperature 97.5 F L Pulse Rate 69 74 66 Respiratory Rate 18 Blood Pressure 96/58 L Pulse Oximetry 99 10/29/17 02:00 10/29/17 03:00 10/29/17 04:00 Temperature 98.1 F Pulse Rate 70 68 68 Respiratory Rate 16 Blood Pressure 83/52 L Pulse Oximetry 99 10/29/17 05:00 10/29/17 08:00 Temperature 97.4 F L Pulse Rate 66 70 Respiratory Rate 18 Blood Pressure 93/59 L Pulse Oximetry 100 Intake & Output 10/28/17 10/29/17 10/29/17 18:59 06:59 18:59 Intake Total 600 / 600 480 / 480 Output Total 700 / 700 400 / 400 Balance -100 / -100 80 / 80 Weight 66.5 kg Intake: Oral 600 / 600 480 / 480 Output: Urine 700 / 700 400 / 400 Other: # Voids 2 Date of Last Bowel Movement 10/28/17 10/28/17 10/28/17 # Bowel Movements 1 Narrative: GENERAL: Alert, oriented 3, NAD. SKIN: Warm and dry. HEAD: Normocephalic. EYES: No scleral icterus. No injection or drainage. NECK: Supple, trachea midline. No JVD or lymphadenopathy. CARDIOVASCULAR: Regular rate and rhythm without gallops, or rubs. Systolic murmur present. 3/6 RESPIRATORY: Breath sounds equal bilaterally. No accessory muscle use. GASTROINTESTINAL: Abdomen soft, non-tender, nondistended. MUSCULOSKELETAL: No cyanosis, or edema. Insight and judgment is good Mood behaviors appropriate Neuro: Cranial nerves II through XII are grossly intact deep tendon reflexes 2- 4 upper extremity and lower extremity bilaterally moves all 4 extremities motor strength is 5 out of 5 in upper extremity and lower extremities bilaterally Results - Labs CBC & Chem 7: 10/28/17 03:02 10/28/17 03:02 Laboratory Results - last 24 hr 10/28/17 03:02 Hemoglobin A1c 5.4 Assessment and Plan - Assessment (1) ASD (atrial septal defect) Code(s): Q21.1 - Atrial septal defect Status: Acute - Plan Ms. Martino is a pleasant 26 year old female with a history of mitral valve prolapse who was admitted to the hospital due to palpitation, dizziness and lightheadedness. Cardiology was consulted for further evaluation. Patient EKG showed right bundle branch block. Echocardiogram showed EF 65-70%, right ventricular volume overload and dilatation. ASD measuring 1.7 cm. QP/QS ratio was greater than 1.5. Pulmonary artery pressure was calculated to be 35 mmHg. Palpitation -Patient's symptom was thought to be related to SVT and or PACs -Due to low blood pressure, Beta casandra was not initiated. ASD Right ventricular dilation Right ventricular volume overload Pulmonary hypertension (40-45mmHg). - Echo shows RV volume overload. Qp/Qs > 1.5. - CT chest did not reveal any evidence of anomalous pulm vein. - MOISES shows ASD 2.2 cm with bidirectional shunting. - CV surgery is evaluating for Surgical ASD repair. In-patient. Patient should be transferred to the med-surg floor or CPCU. Full code. Ambulation. For surgery on Monday of the ASD repair per cardiovascular surgery Discharge Planning: Pending clearance by cardiovascular surgery for discharge
--- NOTE | 2017-10-29 13:17 | XR ---
EXAM DATE: 10/29/2017 1:12 PM EDT AGE/SEX: 26 years / Female INDICATIONS: . Shortness of breath. CLINICAL DATA: This is the patient's subsequent encounter. Patient reports that signs and symptoms h ave been present for 4 - 6 days and indicates a pain score of 0/10. MEDICAL/SURGICAL HISTORY: None. None. COMPARISON: No prior exams available for comparison. FINDINGS: AP and lateral views of the chest demonstrate the lungs to be symmetrically aerated without evidence of mass, infiltrate or effusion. The cardiomediastinal contours are unremarkable. Osseous structure s are intact. CONCLUSION: No acute intrathoracic disease. Electronically signed by: Rob Avery MD 10/29/2017 1:15 PM EDT
[2017-10-30] MEDS ORDERED: Heparin - SQ 10,000 UNITS/ML Vial ONE (06:33)
[2017-10-30] MEDS ORDERED: Insulin Regular (For Infusion) 100 UNIT in Sodium Chlor 0.9% Inj 99 ML IV.CONT PRN ×6 (06:48→11:00)
[2017-10-30] MEDS ORDERED: Dextrose 50% in Water 50 ML Vial IV.PUSH PRN ×2 (06:48→10:11)
[2017-10-30] MEDS ORDERED: Sodium Chloride 0.9% Irr Bot 1,000 ML, Vancomycin Inj 1,000 MG IRRIGATION SCH ×2 (07:00)
[2017-10-30] MEDS ORDERED: Cardioplegic Irr Soln 2,000 ML IRRIGATION ONE (07:53)
[2017-10-30] MEDS ORDERED: Potassium Chlor 40 mEq Premix 80 MEQ/200 ML PIGGYBACK ONE (07:54)
[2017-10-30] MEDS ORDERED: Albumin Human 25% Inj 50 ML IV.SIG ONE (07:55)
[2017-10-30] MEDS ORDERED: Heparin 10,000 UNITS/10 ML Vial (for IV use) ONE (07:55)
[2017-10-30] MEDS ORDERED: MethylPREDNISolone Sod Succinate Inj 125 MG/2 ML Vial ONE (08:21)
[2017-10-30] MEDS ORDERED: Metoprolol Inj 5 MG/5 ML Vial IV.PUSH PRN (10:11)
[2017-10-30] MEDS ORDERED: Potassium Chlor 20 mEq Premix 20 MEQ/100 ML PIGGYBACK IV.SIG PRN ×2 (10:11)
[2017-10-30] MEDS ORDERED: Calcium Chloride Inj 1 GM in Sodium Chlor 0.9% Inj 100 ML IV.SIG PRN (10:11)
[2017-10-30] MEDS ORDERED: Dexmedetomidine Inj 200 MCG in Sodium Chlor 0.9% Inj 48 ML IV.CONT PRN ×2 (10:11→11:02)
[2017-10-30] MEDS ORDERED: RESP: Racemic Epinephrine 2.25% 0.5 ML Neb NEB PRN (10:11)
[2017-10-30] MEDS ORDERED: Post-op Orders (for Pharmacy) OTHER STA (10:11)
[2017-10-30] MEDS ORDERED: Calcium Chloride Inj 1 GM/10 ML Syringe IV.PUSH PRN (10:11)
[2017-10-30] MEDS ORDERED: Magnesium Sulfate Inj 2 GM in Sodium Chlor 0.9% Inj 96 ML IV.SIG PRN ×4 (10:11)
[2017-10-30] MEDS ORDERED: Albumin Human 5% Inj 250 ML IV.SIG PRN (10:11)
--- NOTE | 2017-10-30 10:24 | P.OP ---
- Preoperative Diagnosis (1) Right heart failure (2) ASD (atrial septal defect) - Postoperative Diagnosis (1) ASD (atrial septal defect) (2) Right heart failure Date of procedure: 10/30/17 Procedure: ASD repair with a pericardial patch Implants: Bovine pericardium patch Anesthesia: JABARI Surgeon: Darcie Mackey MD Customer Engineering Specialist: Salud Neil Pathology: none sent Operation and Findings: The patient was seen in the Holding Room. The risks, benefits, complications, treatment options, and expected outcomes were discussed with the patient. The possibilities of reaction to medication, pulmonary aspiration, perforation of viscus, bleeding, recurrent infection, the need for additional procedures, failure to diagnose a condition, and creating a complication requiring transfusion or operation were discussed with the patient. The patient concurred with the proposed plan, giving informed consent. The site of surgery properly noted/marked. The patient was taken to Operating Room, identified as Ana Lilia Martino and the procedure verified as ASD Repair, MOISES. A Time Out was held and the above information confirmed. Standard monitoring lines and Paris catheter were placed. General anesthesia was induced. The patient was prepped and draped in a sterile fashion. A median sternotomy was performed and electrocautery was used to obtain hemostasis. The pericardium was opened and a pericardial sling was created using interrupted 0 silk sutures. The patient was heparinized for cardiopulmonary bypass. The heart was instrumented for cardiopulmonary bypass in the usual manner with bicaval venous drainage. Both the IVC and SVC were encircled with umbilical tapes to isolate the heart during the procedure. Antegrade blood cardioplegia was employed. The patient was placed on cardiopulmonary bypass. The umbilical tapes were ensnared and the right atrium was opened widely. The fossa ovalis was identifed and the a large secundum ASD was identified. The ASD was then repaired using a bovine pericardium patch with a 4-0 Prolene suture. The left atrium and right atrium were filled with saline with ventilation to express as much air as possible. The right atrium was closed using a running 4-0 Prolene suture. The patient was systemically rewarmed and received a hotshot dose of warm blood cardioplegia. The heart was vigorously deaired with a clamp on. The patient was placed in Trendelenburg's position. The clamp was removed, deairing continued. Intraoperative MOISES was used to assess intracardiac air and the ASD repair. The heart was loaded and allowed to eject and the ASD closure was analyzed by MOISES. The repair were excellent with no residual shunt. The patient was and weaned from cardiopulmonary bypass. Protamine was given. There was no adverse reaction. Decannulation was carried out without incident. Wound was checked for hemostasis which was obtained using electrocautery. A 32 Welsh chest tube was placed and secured to the skin with 0 silk suture. The sternum was closed with stainless steel wire. The fascia was closed with 1. PDS. The subcutaneous tissue was closed using a running 2-0 Vicryl suture. The skin was closed with 4-0 Monocryl. Sterile dressings were placed. At the end of the operation, all sponge, instruments, and needle counts were correct. The patient was transferred to the CVICU in stable condition. Findings: large secundum ASD XC: 24 min CPB: 30 min Drains: mediastinal x 1 pleural x 1 Complications: none Disposition: to CVICU in stable condition
[2017-10-30] MEDS ORDERED: fentaNYL Citrate Inj 250 MCG/5 ML Ampul ONE ×2 (10:56)
--- NOTE | 2017-10-30 11:44 | XR ---
EXAM DATE: 10/30/2017 11:35 AM EDT AGE/SEX: 26 years / Female INDICATIONS: Cardiac disease. Post-op for septal defect surgery. CLINICAL DATA: This is the patient's subsequent encounter. Patient reports that signs and symptoms h ave been present for 2 days and indicates a pain score of Nonresponsive. MEDICAL/SURGICAL HISTORY: Non-responsive. Non-responsive. COMPARISON: [facility], CHEST 2V AP&LAT, 10/29/2017. . FINDINGS: The ET tube, right jugular introducer sheath and right jugular central line all appear in satisfactor y position. There is a nasogastric tube with its tip overlying the distal esophagus and stomach. The patient is post median sternotomy. There is a mediastinal drain in place. The lungs are clear. The cardiac silhouette is normal in size. CONCLUSION: Stable postoperative chest. Electronically signed by: Isaac Rico MD 10/30/2017 11:43 AM EDT
[2017-10-30] MEDS ORDERED: Calcium Chloride Inj 1 GM/10 ML Syringe IV.CONT ONE (12:00)
[2017-10-30] MEDS ORDERED: Sodium Bicarbonate 8.4% Inj 50 MEQ/50 ML Syringe IV.CONT ONE (12:00)
[2017-10-30] MEDS ORDERED: Glycopyrrolate 0.2 MG/ML Vial IV.PUSH ONE (12:00)
[2017-10-30] MEDS ORDERED: RASS Change Order OTHER ONE (12:00)
[2017-10-30] MEDS ORDERED: Dexmedetomidine Inj 200 MCG/2 ML Vial IV.CONT ONE (12:00)
[2017-10-30] MEDS ORDERED: Heparin - SQ 10,000 UNITS/ML Vial OTHER ONE (12:00)
[2017-10-30] MEDS ORDERED: Protamine Sulfate Inj 250 MG/25 ML Vial IV.CONT ONE (12:00)
[2017-10-30] MEDS ORDERED: Phenylephrine/NS 1000 MCG/10ML Syringe IV.PUSH ONE (12:00)
[2017-10-30] MEDS ORDERED: Sodium Chlor 0.9% Inj 500 ML IV.SIG ONE (12:00)
[2017-10-30] MEDS ORDERED: Aminocaproic Acid Inj 5,000 MG/20 ML Vial IV.CONT ONE (12:00)
--- NOTE | 2017-10-30 12:04 | P.PNIM ---
Subjective Interval history: 26-year-old female with a past medical history significant for mitral valve prolapse and a "abnormal EKG" 4 years ago presents the emergency department for evaluation of palpitations. The patient reports she has palpitations for approximately 2 hours, felt faint and decided to come to the emergency room for further evaluation. The patient had a MOISES 4 years ago which was normal and she was instructed to follow-up with the associate attorney however she was never able to do so. The patient denies having any chest pain or shortness of breath. No abdominal pain. No nausea/vomiting. Ms. Martino was admitted due to palpitation, dizziness, lightheadedness that lasted for almost two hours. She has a history of MVP. Cardiology consulted. EKG shows RBBB. Cardiology recommended Echo. Likely discharge later today or in the AM. TSH within normal range (0.895). Will check Mg level. Currently hemodynamically stable. Will start patient on a regular diet. 8-8 Follow up for palpitation, dizziness, lightheadedness. Patient is currently doing well. Denies any chest pain, shortness of breath, fever or chills. She is waiting for CT scan to determine if she has anomalous pulmonary vein today. She is also scheduled for MOISES. No fever or chills. 8-9 Follow up for palpitation, dizziness, lightheadedness. Patient is currently doing well. No acute concerns. She is being evaluated by Cardiothoracic surgery for ASD repair. 8-10 [facility] FOR SURGERY ON MONDAY FOR ASD REPAIR NO NEW COMPLAINTS AWAIT SURGERY 8 NO NEW COMPLAINTS HAPPY TO MOVE OUT OF CDU WANTS TO SHOWER DW RN AND PT SURGERY Monday12 FOR SURGERY TOMORROW DW RN AND PT FOLLOW UP ASD NEEDING REPAIR NO SOB, NO CHEST PAIN, NO PALPITATIONS, NO NAUSEA, NO VOMITING 8-13 HAD SURGERY TODAY - Preoperative Diagnosis (1) Right heart failure (2) ASD (atrial septal defect) - Postoperative Diagnosis (1) ASD (atrial septal defect) (2) Right heart failure Date of procedure: 10/30/17 Procedure: ASD repair with a pericardial patch Implants: Bovine pericardium patch REMAINS INTUBATED- EXPECTED EXTUBATION LATER TODAY SEEN IN ICU AFTER PROCEDURE Physical Exam Vital signs: Vital Signs 10/29/17 13:00 10/29/17 14:00 10/29/17 15:00 Temperature Pulse Rate 84 90 80 Respiratory Rate Blood Pressure Pulse Oximetry 10/29/17 15:17 10/29/17 15:59 10/29/17 17:00 Temperature 97.8 F Pulse Rate 84 66 80 Respiratory Rate 18 Blood Pressure 100/62 Pulse Oximetry 98 10/29/17 18:00 10/29/17 19:00 10/29/17 20:00 Temperature 97.8 F Pulse Rate 76 81 60 Respiratory Rate 18 Blood Pressure 99/64 L Pulse Oximetry 100 10/29/17 21:00 10/29/17 22:00 10/29/17 23:00 Temperature Pulse Rate 67 66 79 Respiratory Rate Blood Pressure Pulse Oximetry 10/30/17 00:00 10/30/17 01:00 10/30/17 02:00 Temperature 97.9 F Pulse Rate 81 75 65 Respiratory Rate 16 Blood Pressure 104/61 Pulse Oximetry 99 10/30/17 03:00 10/30/17 04:00 10/30/17 05:00 Temperature 96.4 F L Pulse Rate 68 64 65 Respiratory Rate 16 Blood Pressure 95/54 L Pulse Oximetry 99 10/30/17 05:54 10/30/17 11:00 Temperature 95.4 F L Pulse Rate 68 78 Respiratory Rate 10 L Blood Pressure 149/80 H Pulse Oximetry 99 Intake & Output 10/29/17 10/30/17 10/30/17 18:59 06:59 18:59 Intake Total 1640 / 1640 240 / 240 2730 / 2730 Output Total 1110 / 1110 1750 / 1750 Balance 530 / 530 240 / 240 980 / 980 Weight 66 kg Intake: Oral 1640 / 1640 240 / 240 Anesthesia Amount 1999 / 1999 Cell Saver Amount 730 / 730 Output: Urine 1110 / 1110 Estimated Blood Loss 1400 / 1400 Urine Amount (Catheter) 350 / 350 Indwelling Temp Sensing 350 / 350 Catheter Other: # Voids 2 Date of Last Bowel Movement 10/28/17 Narrative: GENERAL: SEDATED ON VENT SKIN: Warm and dry. HEAD: Normocephalic. Atraumatic EYES: No scleral icterus. No injection or drainage. NECK: Supple, trachea midline. No JVD or lymphadenopathy. CARDIOVASCULAR: Regular rate and rhythm without gallops, or rubs. Systolic murmur present. 3/6 RESPIRATORY: Breath sounds equal bilaterally. No accessory muscle use. GASTROINTESTINAL: Abdomen soft, non-tender, nondistended. MUSCULOSKELETAL: No cyanosis, or edema. Sedated on ventilator at this time with endotracheal Neuro: Cranial nerves II through XII are grossly intact deep tendon reflexes 2- 4 upper extremity and lower extremity bilaterally moves all 4 extremities Nonverbal at this time remains sedated on ventilator - Urinary Catheter Management Indwelling Temp Sensing Catheter Cath placed during this visit: yes Reason for continuing: Hourly intake/output Insertion date: 10/30/17 Insertion time: 08:00 Results - Labs CBC & Chem 7: 10/28/17 03:02 10/28/17 03:02 Laboratory Results - last 24 hr 10/29/17 10/29/17 10/30/17 13:25 13:29 06:30 Nasal Screen MRSA (PCR) Negative Staph aureus (PCR) Positive Blood Type O Positive Blood Type Recheck Required Antibody Screen Negative MTS Gel Crossmatch See Detail - Imaging Impressions Chest X-Ray 10/29/17 00:00 CONCLUSION: No acute intrathoracic disease. Chest X-Ray 10/30/17 10:11 CONCLUSION: Stable postoperative chest. - Procedures - Preoperative Diagnosis (1) Right heart failure (2) ASD (atrial septal defect) - Postoperative Diagnosis (1) ASD (atrial septal defect) (2) Right heart failure Date of procedure: 10/30/17 Procedure: ASD repair with a pericardial patch Implants: Bovine pericardium patch Assessment and Plan - Assessment (1) ASD (atrial septal defect) Code(s): Q21.1 - Atrial septal defect Status: Acute - Plan Ms. Martino is a pleasant 26 year old female with a history of mitral valve prolapse who was admitted to the hospital due to palpitation, dizziness and lightheadedness. Cardiology was consulted for further evaluation. Patient EKG showed right bundle branch block. Echocardiogram showed EF 65-70%, right ventricular volume overload and dilatation. ASD measuring 1.7 cm. QP/QS ratio was greater than 1.5. Pulmonary artery pressure was calculated to be 35 mmHg. Palpitation -Patient's symptom was thought to be related to SVT and or PACs -Due to low blood pressure, Beta casandra was not initiated. ASD Right ventricular dilation Right ventricular volume overload Pulmonary hypertension (40-45mmHg). - Echo shows RV volume overload. Qp/Qs > 1.5. - CT chest did not reveal any evidence of anomalous pulm vein. - MOISES shows ASD 2.2 cm with bidirectional shunting. - CV surgery is evaluating for Surgical ASD repair. - Preoperative Diagnosis (1) Right heart failure (2) ASD (atrial septal defect) - Postoperative Diagnosis (1) ASD (atrial septal defect) (2) Right heart failure Date of procedure: 10/30/17 Procedure: ASD repair with a pericardial patch Implants: Bovine pericardium patch Full code. Ambulation. Patient had surgery on MondayOctober 30 of the ASD repair per cardiovascular surgery Code Status: Full code Discussed Condition With: RN Patient currently sedated on ventilator Discharge Planning: Pending clearance by cardiovascular surgery for discharge
[2017-10-30] MEDS: fentaNYL Citrate Inj 100 MCG/2 ML Ampul IV.PUSH PRN ×7 (12:33→23:51)
[2017-10-30] MEDS: Ketorolac Inj 30 MG/ML (IVP) Vial IV.PUSH PRN ×2 (12:33→18:16)
--- NOTE | 2017-10-30 12:46 | P.DCO ---
- Diagnosis (1) Arrhythmia - Home Health Nursing Order: Medical education, Signs/symptoms of disease process, Wound care and dressing changes, Nursing assessment with vital signs - Home Health Aide Instructions: Heart and Vascular Surgery patients *Special attention to sternal dressing Mandatory frequency Assess and evaluation, 4 days in a row The next week 3X week 2 times a week for 4 weeks 1 time a week for 5 weeks Schedule Heart and Vascular patients for full 60 day certification period Initial visit Review Open Heart Surgery Discharge Instructions (Sternal precautions, Activity, Elastic hose, Incision care, Driving, Incentive spirometry, Smoking, [place], Work and other) Need Betadine to paint incision Medication reconciliation Importance of follow up care/ check on appointments Make calendar record temperature daily When to call [facility] nurse, review instructions, phone list Incentive Spirometry, demonstration Visit 1- Begin discharge instruction for patient family and/ or caregiver using teach back method- Signs and symptoms of infection Disease characteristics Medicines and side effects Foods and nutrition/ appetite Infection control/ hand washing/ hygiene Visit 2- Continue teaching Discharge instructions- include additional information on smoking cessation , sternal dressing (sternal vac) Visit 3- Continue teaching- Cough and deep breathing, incision monitoring. Choose my plate Visit 4- Continue teaching- Discuss limitations Discuss how they are feeling Discuss progress toward goals Remaining visits- continue teaching and monitoring For any questions please call : Monday 8am-5pm Heart & Vascular Surgery Office ( Dr. Ordonez & Dr. Mackey), After Hours / Nights (5pm -8am) Weekends and Holidays Please call [facility] Cardiac Intermediate Care Unit (CIC) Charge Nurse PREVENA Single Use Negative Wound Therapy System Caregiver Instruction Sheet 1. A Prevena dressing system was applied to the chest incision during surgery , to promote wound healing. It works via a suction device (negative pressure wound therapy) to remove low to moderate levels of exudate (drainage) and infectious materials. We recommend that the device stay in place for up to seven days, from day of surgery. 2. Day of Surgery__/ Day of Removal 11/06/17 3. The dressing should only be removed by a health laboratory animal caretaker. Please arrange removal of device to coincide with Home Health visit and or with Nursing staff at Rehab 4. If skin reddening or irritation of skin occurs, or excessive drainage, please notify the Cardiovascular Surgeons office at [phone]. 5. Light showering is permissible; however the pump should be disconnected and placed in safe location, where it will not get wet. The dressing should not be exposed to direct spray or submerged in water. No bath tub / shower only. Ensure the end of the tubing attached to the dressing is facing down so that water does not enter the top of the tube. 6. To remove Prevena dressing: press purple button to turn off device / remove the suction. Then disconnect the tubing from the pump. The fixation strips should be stretched away from the skin and the dressing lifted at one corner and peeled back until it has been fully removed. 7. After removal, it is ok to shower daily using liquid dial soap and clean wash cloth, rinse and pat dry, and leave incision open to air dry. For any concerns regarding Prevena dressing, and or wounds, please contact Sarina Aquino, patient navigator at [phone] or notify the Cardiovascular Surgeons office at [phone]. Incentive spirometry Q1 hr x 10, while awake, also use acapella device hourly whole awake Sternal Breast Bone Precautions: NO pushing or pulling, ( pt must use sternal pillow to support chest with all activities and with coughing ( takes up to 3 months breast bone to heal ) All females to wear sternal bra , launder as needed Daily incision care: ok to shower daily, no tub bath. Wash all incisions with liquid dial soap, clean wash cloth to each site, rinse and pat dry. Observe for any signs of infection, such as drainage which is dark yellow, farley, green or foul smelling. Immediately report to the surgeon any drainage from the chest incision, or legs, and for any abnormal drainage from the chest tube sites. Notify surgeon if any temp >101.5 degrees F. When specialty dressing removed/ or if you do not have one, continue to shower daily as above, then rinse and pat incision dry and paint with betadine daily x 5 days. Allow steri strips to fall off if you have any. Avoid lotions, creams, salves, oils, etc. for the first month Please see attached forms for additional instructions regarding post Open Heart specialty wound vacuum dressings. SONI or Prevena , Dressing to be removed by Nursing staff on _11/06/17 F/U appointment: as per [place] instructions: PCP in 2 weeks, CV surgeon 2 weeks, Reacher 3-4 weeks For any questions regarding incisions/ dressing / meds / post op care or above Symptoms, Monday 8am-5pm Heart & Vascular Surgery Office ( Dr. Ordonez & Dr. Mackey), After Hours / Nights (5pm -8am) Weekends and Holidays Please call [facility] Cardiac Intermediate Care Unit (CIC) Charge Nurse - Certification I have seen patient Ana Lilia Martino on 10/30/17. My clinical findings support the need for the requested home health care services because: Deconditioned with increased weakness I certify that my clinical findings support that this patient is homebound because: Post-op weakness (1) Arrhythmia Qualifiers: Arrhythmia type: unspecified cardiac arrhythmia Qualified Code(s): I49.9 - Cardiac arrhythmia, unspecified
--- NOTE | 2017-10-30 12:47 | P.PNCV ---
- Note Subjective/Hospital Course: 26-year-old female who presented to the emergency department, reported palpitations while at work, felt very faint. 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 Supposedly had a history of some type of mitral valve prolapse and was told that she also had a septal defect, which was told it was closed as a child. She states she was born in [facility], adopted. Apparently did not have a lot of healthcare following as a child. She did admit to having vaccines as needed as a child, but to her understanding that the septal defect had closed. She was seen by _Jocelin ____ approximately 4 years ago, was told she had a mitral valve prolapse and that the septal defect at that time had also closed. Prior to that, she had been in the midst of changing a physician when they noted the heart murmur. She has been getting palpitations on a regular basis, mainly at night and at rest, they last seconds. She states it feels like an air bubble. She rode her bike to work on Monday and when she developed palpitations which lasted over 2 hours, felt faint. She did not have anybody to bring her, so they called the ambulance. She underwent CT chest, which showed no evidence to suggest partial anomalous pulmonary vein. Heart size normal limits. She underwent transesophageal echo preceded by a regular trans-echocardiogram. The ejection fraction 60-65%, atrial septal defect present measuring 2.2 cm with bidirectional shunting. Mild tricuspid valve regurgitation, with some mild pulmonary hypertension of 40-50 mmHg. Right ventricle was severely dilated and the right ventricular systolic function moderately decreased. We were consulted in regards to atrial septal defect. 10/27 echo has been reviewed by Dr Mackey plan is for ASD repair on Monday 10/30 no preop BB 2/2 labile low BP surgery : ASD repair with a pericardial patch Implants: Bovine pericardium patch Objective: Vital Signs - 24 hr 10/29/17 13:00 10/29/17 14:00 10/29/17 15:00 Temperature Pulse Rate 84 90 80 Respiratory Rate Blood Pressure Pulse Oximetry 10/29/17 15:17 10/29/17 15:59 10/29/17 17:00 Temperature 97.8 F Pulse Rate 84 66 80 Respiratory Rate 18 Blood Pressure 100/62 Pulse Oximetry 98 10/29/17 18:00 10/29/17 19:00 10/29/17 20:00 Temperature 97.8 F Pulse Rate 76 81 60 Respiratory Rate 18 Blood Pressure 99/64 L Pulse Oximetry 100 10/29/17 21:00 10/29/17 22:00 10/29/17 23:00 Temperature Pulse Rate 67 66 79 Respiratory Rate Blood Pressure Pulse Oximetry 10/30/17 00:00 10/30/17 01:00 10/30/17 02:00 Temperature 97.9 F Pulse Rate 81 75 65 Respiratory Rate 16 Blood Pressure 104/61 Pulse Oximetry 99 10/30/17 03:00 10/30/17 04:00 10/30/17 05:00 Temperature 96.4 F L Pulse Rate 68 64 65 Respiratory Rate 16 Blood Pressure 95/54 L Pulse Oximetry 99 10/30/17 05:54 10/30/17 10:45 10/30/17 11:00 Temperature 95.4 F L Pulse Rate 68 78 Respiratory Rate 10 L 10 L Blood Pressure 149/80 H Pulse Oximetry 99 99 Labs: Laboratory Results - last 12 hr 10/30/17 10/30/17 06:30 12:05 POC Glucose 97 MTS Gel Crossmatch See Detail Result Diagrams: 10/28/17 03:02 10/28/17 03:02 - Plan (1) Arrhythmia (2) ASD (atrial septal defect) Plan: for surgery on Monday (1) Arrhythmia Qualifiers: Arrhythmia type: unspecified cardiac arrhythmia Qualified Code(s): I49.9 - Cardiac arrhythmia, unspecified
[2017-10-30] MEDS: Potassium Chlor 20 mEq Premix 20 MEQ/100 ML PIGGYBACK IV.SIG PRN ×2 (14:47→17:20)
[2017-10-30] MEDS: Vancomycin Inj 1,000 MG in Sodium Chlor 0.9% Inj 250 ML IV.SIG SCH (21:27)
[2017-10-31] MEDS: Ketorolac Inj 30 MG/ML (IVP) Vial IV.PUSH PRN ×2 (01:20→08:04)
[2017-10-31] MEDS: fentaNYL Citrate Inj 100 MCG/2 ML Ampul IV.PUSH PRN ×3 (02:27→08:56)
--- NOTE | 2017-10-31 03:07 | XR ---
EXAM DATE: 10/31/2017 2:48 AM EDT AGE/SEX: 26 years / Female INDICATIONS: Short of breath. CLINICAL DATA: This is the patient's subsequent encounter. Patient reports that signs and symptoms h ave been present for 2 days and indicates a pain score of 0/10. MEDICAL/SURGICAL HISTORY: None. CABG. COMPARISON: [facility] [place], CHEST 1V SINGLE AP, 10/30/2017. . FINDINGS: A single AP view of the chest demonstrates mild cardiomegaly with bilateral perihilar densities. No p leural effusions. Status post median sternotomy. Mediastinal chest tube. No pneumothorax. Right jugul ar line stable position. Nasogastric tube removed. The cardiomediastinal contours are unremarkable. Osseous structures are intact. CONCLUSION: Cardiomegaly with bilateral perihilar densities. Electronically signed by: Luther Cabrera MD 10/31/2017 3:05 AM EDT
[2017-10-31 04:11] LABS: Baso % (Auto) 0.1 % (0.0-2.0); Hematocrit 31.7 % (35.0-46.0); Hemoglobin 11.1 gm/dL (11.6-15.3); Mean Corpuscular Hemoglobin 31.5 pg (27.0-34.0); Mean Platelet Volume 8.3 fL (7.0-11.0); Mono # (Auto) 0.9 th/mm3 (0.0-0.9); Mono % (Auto) 6.9 % (0.0-8.0); Platelet Count 134 th/mm3 (150-450); Red Blood Count 3.52 mil/mm3 (4.00-5.30); Red Cell Distribution Width 13.3 % (11.6-17.2); White Blood Count 12.9 th/mm3 (4.0-11.0)
[2017-10-31 04:27] LABS: Alanine Aminotransferase 11 U/L (10-53); Albumin 2.8 g/dL (3.4-5.0); Alkaline Phosphatase 47 U/L (45-117); Anion Gap 5 meq/L (5-15); Aspartate Aminotransferase 27 U/L (15-37); Blood Urea Nitrogen 13 mg/dL (7-18); Calcium 7.4 mg/dL (8.5-10.1); Carbon Dioxide 26.8 meq/L (21.0-32.0); Chloride 111 meq/L (98-107); Glomerular Filtration Rate Greater Than 89 mL/min (>89); Glucose,Random 95 mg/dL (74-106); Phosphorus 3.8 mg/dL (2.5-4.9); Potassium 4.2 meq/L (3.5-5.1); Sodium 143 meq/L (136-145); Total Protein 4.7 g/dL (6.4-8.2)
[2017-10-31] MEDS: Vancomycin Inj 1,000 MG in Sodium Chlor 0.9% Inj 250 ML IV.SIG SCH ×2 (08:50→20:14)
[2017-10-31] MEDS ORDERED: Bisacodyl 10 MG Supp RECTAL ONE (09:31)
[2017-10-31] MEDS ORDERED: Sod Phosphate/Sod Biphosphate (Adult) Enema 133 ML Bottle RECTAL PRN (09:31)
[2017-10-31] MEDS ORDERED: Dextrose 50% in Water 50 ML Vial IV.PUSH PRN (09:31)
--- NOTE | 2017-10-31 09:38 | P.PNCV ---
- Note Subjective/Hospital Course: 26-year-old female who presented to the emergency department, reported palpitations while at work, felt very faint. 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 Supposedly had a history of some type of mitral valve prolapse and was told that she also had a septal defect, which was told it was closed as a child. She states she was born in [facility], adopted. Apparently did not have a lot of healthcare following as a child. She did admit to having vaccines as needed as a child, but to her understanding that the septal defect had closed. She was seen by _Jocelin ____ approximately 4 years ago, was told she had a mitral valve prolapse and that the septal defect at that time had also closed. Prior to that, she had been in the midst of changing a physician when they noted the heart murmur. She has been getting palpitations on a regular basis, mainly at night and at rest, they last seconds. She states it feels like an air bubble. She rode her bike to work on Monday and when she developed palpitations which lasted over 2 hours, felt faint. She did not have anybody to bring her, so they called the ambulance. She underwent CT chest, which showed no evidence to suggest partial anomalous pulmonary vein. Heart size normal limits. She underwent transesophageal echo preceded by a regular trans-echocardiogram. The ejection fraction 60-65%, atrial septal defect present measuring 2.2 cm with bidirectional shunting. Mild tricuspid valve regurgitation, with some mild pulmonary hypertension of 40-50 mmHg. Right ventricle was severely dilated and the right ventricular systolic function moderately decreased. We were consulted in regards to atrial septal defect. 10/27 echo has been reviewed by Dr Mackey plan is for ASD repair on Monday 10/30 no preop BB 2/2 labile low BP surgery : ASD repair with a pericardial patch Implants: Bovine pericardium patch extubated after surgery 2000cc crystalloid, 730cc cell saver 10/31 EKG shows pericarditis up in chair, eval for removal of chest tube today pulm toileting , pain control transfer to stepdown unit on Toradol Objective: Vital Signs - 24 hr 10/30/17 10:45 10/30/17 11:00 10/30/17 13:00 Temperature 95.4 F L 98.5 F Pulse Rate 78 Respiratory Rate 10 L 10 L Blood Pressure 149/80 H Pulse Oximetry 99 99 10/30/17 14:12 10/30/17 14:25 10/30/17 15:00 Temperature 98.9 F Pulse Rate 69 Respiratory Rate 13 13 Blood Pressure 115/60 Pulse Oximetry 99 99 10/30/17 16:26 10/30/17 18:30 10/30/17 19:00 Temperature 98.8 F 98.2 F Pulse Rate 65 Respiratory Rate 16 16 Blood Pressure 103/65 Pulse Oximetry 97 10/30/17 20:25 10/30/17 20:38 10/30/17 21:40 Temperature 98.2 F Pulse Rate Respiratory Rate Blood Pressure Pulse Oximetry 96 97 10/30/17 21:56 10/30/17 23:00 10/31/17 02:57 Temperature 98.0 F Pulse Rate 63 Respiratory Rate 18 16 14 Blood Pressure 94/58 L Pulse Oximetry 96 10/31/17 03:00 10/31/17 03:20 10/31/17 07:00 Temperature 98.3 F 98.2 F Pulse Rate 57 L 63 Respiratory Rate 14 14 14 Blood Pressure 88/55 L 129/70 Pulse Oximetry 95 95 97 GENERAL: A&) x 3 , SKIN: Warm and dry. Primapore dressing to chest HEAD: Normocephalic. EYES: No scleral icterus. No injection or drainage. NECK: Supple, trachea midline. No JVD or lymphadenopathy. CARDIOVASCULAR: Regular rate and rhythm without murmurs, gallops, or rubs. RESPIRATORY: Breath sounds equal bilaterally. No accessory muscle use. GASTROINTESTINAL: Abdomen soft, non-tender, nondistended. MUSCULOSKELETAL: No cyanosis, or edema. BACK: Nontender without obvious deformity. No CVA tenderness. Labs: Laboratory Results - last 12 hr 10/30/17 10/30/17 10/31/17 21:30 23:07 01:01 WBC RBC Hgb Hct MCV MCH MCHC RDW Plt Count MPV Neut % (Auto) Lymph % (Auto) Branch % (Auto) Eos % (Auto) Baso % (Auto) Neut # (Auto) Lymph # (Auto) Branch # (Auto) Eos # (Auto) Baso # (Auto) WBC Differential Differential Comment Sodium Potassium Chloride Carbon Dioxide Anion Gap BUN Creatinine Estimated GFR POC Glucose 116 H 85 104 Random Glucose Calcium Prot Corrected Calcium Phosphorus Magnesium Total Bilirubin AST ALT Alkaline Phosphatase Total Protein Albumin 08/14/18 08/14/18 08/14/18 03:44 03:45 03:45 WBC 12.9 H RBC 3.52 L Hgb 11.1 L Hct 31.7 L MCV 90.0 MCH 31.5 MCHC 35.0 RDW 13.3 Plt Count 134 L D MPV 8.3 Neut % (Auto) 85.0 H Lymph % (Auto) 8.0 L Branch % (Auto) 6.9 Eos % (Auto) 0.0 Baso % (Auto) 0.1 Neut # (Auto) 11.0 H Lymph # (Auto) 1.0 Branch # (Auto) 0.9 Eos # (Auto) 0.0 Baso # (Auto) 0.0 WBC Differential . Differential Comment Auto diff final Sodium 143 Potassium 4.2 Chloride 111 H Carbon Dioxide 26.8 Anion Gap 5 BUN 13 Creatinine 0.41 L Estimated GFR Greater than 89 POC Glucose 85 Random Glucose 95 Calcium 7.4 L* Prot Corrected Calcium 8.8 Phosphorus 3.8 Magnesium 2.0 Total Bilirubin 0.5 AST 27 ALT 11 Alkaline Phosphatase 47 Total Protein 4.7 L D Albumin 2.8 L 10/31/17 10/31/17 05:46 08:13 WBC RBC Hgb Hct MCV MCH MCHC RDW Plt Count MPV Neut % (Auto) Lymph % (Auto) Branch % (Auto) Eos % (Auto) Baso % (Auto) Neut # (Auto) Lymph # (Auto) Branch # (Auto) Eos # (Auto) Baso # (Auto) WBC Differential Differential Comment Sodium Potassium Chloride Carbon Dioxide Anion Gap BUN Creatinine Estimated GFR POC Glucose 87 102 Random Glucose Calcium Prot Corrected Calcium Phosphorus Magnesium Total Bilirubin AST ALT Alkaline Phosphatase Total Protein Albumin Result Diagrams: 10/31/17 03:45 10/31/17 03:45 Telemetry: pericarditis - Plan (1) Arrhythmia (2) ASD (atrial septal defect) Plan: for surgery on Monday (4) Status post atrial septal defect repair Plan: continue ASA, pain control Toradol pulm toileting OOB ambulate transfer to stepdown (1) Arrhythmia Qualifiers: Arrhythmia type: unspecified cardiac arrhythmia Qualified Code(s): I49.9 - Cardiac arrhythmia, unspecified
--- NOTE | 2017-10-31 10:26 | P.PN ---
Subjective Interval history: Follow-up atrial septal defect repair October 31, 2017-patient seen and examined, no acute event overnight, vital stable. Afebrile Physical Exam Vital signs: Vital Signs 10/30/17 10:45 10/30/17 11:00 10/30/17 13:00 Temperature 95.4 F L 98.5 F Pulse Rate 78 Respiratory Rate 10 L 10 L Blood Pressure 149/80 H Pulse Oximetry 99 99 10/30/17 14:12 10/30/17 14:25 10/30/17 15:00 Temperature 98.9 F Pulse Rate 69 Respiratory Rate 13 13 Blood Pressure 115/60 Pulse Oximetry 99 99 10/30/17 16:26 10/30/17 18:30 10/30/17 19:00 Temperature 98.8 F 98.2 F Pulse Rate 65 Respiratory Rate 16 16 Blood Pressure 103/65 Pulse Oximetry 97 10/30/17 20:25 10/30/17 20:38 10/30/17 21:40 Temperature 98.2 F Pulse Rate Respiratory Rate Blood Pressure Pulse Oximetry 96 97 10/30/17 21:56 10/30/17 23:00 10/31/17 02:57 Temperature 98.0 F Pulse Rate 63 Respiratory Rate 18 16 14 Blood Pressure 94/58 L Pulse Oximetry 96 10/31/17 03:00 10/31/17 03:20 10/31/17 07:00 Temperature 98.3 F 98.2 F Pulse Rate 57 L 63 Respiratory Rate 14 14 14 Blood Pressure 88/55 L 129/70 Pulse Oximetry 95 95 97 Intake & Output 10/30/17 10/31/17 10/31/17 18:59 06:59 18:59 Intake Total 4990 / 4990 435 / 435 100 / 100 Output Total 3445 / 3445 520 / 520 Balance 1545 / 1545 -85 / -85 100 / 100 Weight 69 kg Intake: IV 1460 / 1460 435 / 435 100 / 100 NovoLIN R (IV Infusion) 100 50 / 50 UNIT In NS Inj 99 ML @ 3 UNITS/ HR 3 mls/hr IV.CONT TITRATE PRN Rx#:[id number] Ofirmev Inj 1,000 mg In 100 ml 200 / 200 100 / 100 100 / 100 @ 400 mls/hr IV.SIG Q6H DILLAN Rx# :[id number] Calcium Chloride Inj 1 GM In NS 110 / 110 Inj 100 ML @ 100 mls/hr IV.SIG PRN PRN Rx#:[id number] LR 1000 mL Inj 500 ML @ 500 mls 1000 / 1000 /hr IV.SIG .Q1H PRN Rx#: [id number] KCl 20 mEq Premix Inj 20 meq In 100 / 100 100 / 100 100 ml @ 50 mls/hr IV.SIG PRN PRN Rx#:[id number] Vancomycin Inj 1,000 MG In NS 235 / 235 Inj 250 ML @ 250 mls/hr IV.SIG Q12H DILLAN Rx#:[id number] Oral 100 / 100 Anesthesia Amount 1999 / 1999 Other 700 / 700 Cell Saver Amount 730 / 730 Output: Emesis Estimated Blood Loss 1400 / 1400 Urine Amount (Catheter) 1909 450 / 450 Indwelling Temp Sensing 1909 450 / 450 Catheter Chest Tube Drainage 120 / 120 70 / 70 Mediastinal 120 / 120 70 / 70 Other: Other Intake Source Saline Solution # Emeses 1 Narrative: GENERAL: NAD SKIN: Warm and dry. HEAD: Normocephalic. Atraumatic EYES: No scleral icterus. No injection or drainage. NECK: Supple, trachea midline. No JVD or lymphadenopathy. CARDIOVASCULAR: Regular rate and rhythm without gallops, or rubs. dressing in place RESPIRATORY: Breath sounds equal bilaterally. No accessory muscle use. Chest tube in place GASTROINTESTINAL: Abdomen soft, non-tender, nondistended. MUSCULOSKELETAL: No cyanosis, or edema. Sedated on ventilator at this time with endotracheal Neuro: Cranial nerves II through XII are grossly intact deep tendon reflexes 2- 4 upper extremity and lower extremity bilaterally moves all 4 extremities - Urinary Catheter Management Indwelling Temp Sensing Catheter Cath placed during this visit: yes, but has since been removed by the nurse Reason for continuing: Continue criteria not met Insertion date: 10/30/17 Insertion time: 08:00 Removal date: 10/31/17 Removal time: 06:00 Results - Labs CBC & Chem 7: 11/01/17 06:15 11/01/17 06:15 Laboratory Results - last 24 hr 10/30/17 10/30/17 10/30/17 06:30 12:05 13:24 WBC RBC Hgb Hct MCV MCH MCHC RDW Plt Count MPV Neut % (Auto) Lymph % (Auto) [place] % (Auto) Eos % (Auto) Baso % (Auto) Neut # (Auto) Lymph # (Auto) [place] # (Auto) Eos # (Auto) Baso # (Auto) WBC Differential Differential Comment Sodium Potassium Chloride Carbon Dioxide Anion Gap BUN Creatinine Estimated GFR POC Glucose 97 136 H Random Glucose Calcium Prot Corrected Calcium Phosphorus Magnesium Total Bilirubin AST ALT Alkaline Phosphatase Total Protein Albumin MTS Gel Crossmatch See Detail 10/30/17 10/30/17 10/30/17 14:07 15:27 16:23 WBC RBC Hgb Hct MCV MCH MCHC RDW Plt Count MPV Neut % (Auto) Lymph % (Auto) [place] % (Auto) Eos % (Auto) Baso % (Auto) Neut # (Auto) Lymph # (Auto) [place] # (Auto) Eos # (Auto) Baso # (Auto) WBC Differential Differential Comment Sodium Potassium Chloride Carbon Dioxide Anion Gap BUN Creatinine Estimated GFR POC Glucose 107 134 H 120 H Random Glucose Calcium Prot Corrected Calcium Phosphorus Magnesium Total Bilirubin AST ALT Alkaline Phosphatase Total Protein Albumin MTS Gel Crossmatch 10/30/17 10/30/17 10/30/17 17:31 18:25 19:45 WBC RBC Hgb Hct MCV MCH MCHC RDW Plt Count MPV Neut % (Auto) Lymph % (Auto) [place] % (Auto) Eos % (Auto) Baso % (Auto) Neut # (Auto) Lymph # (Auto) [place] # (Auto) Eos # (Auto) Baso # (Auto) WBC Differential Differential Comment Sodium Potassium Chloride Carbon Dioxide Anion Gap BUN Creatinine Estimated GFR POC Glucose 88 120 H 78 Random Glucose Calcium Prot Corrected Calcium Phosphorus Magnesium Total Bilirubin AST ALT Alkaline Phosphatase Total Protein Albumin MTS Gel Crossmatch 10/30/17 10/30/17 10/31/17 21:30 23:07 01:01 WBC RBC Hgb Hct MCV MCH MCHC RDW Plt Count MPV Neut % (Auto) Lymph % (Auto) [place] % (Auto) Eos % (Auto) Baso % (Auto) Neut # (Auto) Lymph # (Auto) [place] # (Auto) Eos # (Auto) Baso # (Auto) WBC Differential Differential Comment Sodium Potassium Chloride Carbon Dioxide Anion Gap BUN Creatinine Estimated GFR POC Glucose 116 H 85 104 Random Glucose Calcium Prot Corrected Calcium Phosphorus Magnesium Total Bilirubin AST ALT Alkaline Phosphatase Total Protein Albumin MTS Gel Crossmatch 10/31/17 10/31/17 10/31/17 03:44 03:45 03:45 WBC 12.9 H RBC 3.52 L Hgb 11.1 L Hct 31.7 L MCV 90.0 MCH 31.5 MCHC 35.0 RDW 13.3 Plt Count 134 L D MPV 8.3 Neut % (Auto) 85.0 H Lymph % (Auto) 8.0 L [place] % (Auto) 6.9 Eos % (Auto) 0.0 Baso % (Auto) 0.1 Neut # (Auto) 11.0 H Lymph # (Auto) 1.0 [place] # (Auto) 0.9 Eos # (Auto) 0.0 Baso # (Auto) 0.0 WBC Differential . Differential Comment Auto diff final Sodium 143 Potassium 4.2 Chloride 111 H Carbon Dioxide 26.8 Anion Gap 5 BUN 13 Creatinine 0.41 L Estimated GFR Greater than 89 POC Glucose 85 Random Glucose 95 Calcium 7.4 L* Prot Corrected Calcium 8.8 Phosphorus 3.8 Magnesium 2.0 Total Bilirubin 0.5 AST 27 ALT 11 Alkaline Phosphatase 47 Total Protein 4.7 L D Albumin 2.8 L MTS Gel Crossmatch 10/31/17 10/31/17 05:46 08:13 WBC RBC Hgb Hct MCV MCH MCHC RDW Plt Count MPV Neut % (Auto) Lymph % (Auto) [place] % (Auto) Eos % (Auto) Baso % (Auto) Neut # (Auto) Lymph # (Auto) [place] # (Auto) Eos # (Auto) Baso # (Auto) WBC Differential Differential Comment Sodium Potassium Chloride Carbon Dioxide Anion Gap BUN Creatinine Estimated GFR POC Glucose 87 102 Random Glucose Calcium Prot Corrected Calcium Phosphorus Magnesium Total Bilirubin AST ALT Alkaline Phosphatase Total Protein Albumin MTS Gel Crossmatch Microbiology 10/29/17 16:23 Clean Catch Urine Urine Culture - Preliminary gram negative rods - Imaging Impressions Chest X-Ray 10/30/17 10:11 CONCLUSION: Stable postoperative chest. Chest X-Ray 10/31/17 05:00 CONCLUSION: Cardiomegaly with bilateral perihilar densities. - Procedures Date of procedure: 10/30/17 ASD repair with a pericardial patch Implants: Bovine pericardium patch Assessment and Plan - Assessment (1) ASD (atrial septal defect) Code(s): Q21.1 - Atrial septal defect Status: Acute - Plan 26-year-old female with ASD Right ventricular dilation Right ventricular volume overload Pulmonary hypertension (40-45mmHg). - Echo shows RV volume overload. Qp/Qs > 1.5. - CT chest did not reveal any evidence of anomalous pulm vein. - MOISES shows ASD 2.2 cm with bidirectional shunting. - s/p ASD repair October 30, 2017 by cardiothoracic surgery - Chest tube management per cardiothoracic surgery - Continue current treatment. PT to treat and eval - Transfer to stepdown unit
[2017-10-31] MEDS: Insulin NovoLOG Aspart Correctional Sugar Inj SQ SCH ×4 (10:31→22:30)
--- NOTE | 2017-10-31 12:46 | ECG ---
Date Performed: 10/31/2017 Time Performed: 04:23:16 PTAGE: 26 years EKG: Sinus bradycardia rSr'(V1) - probable normal variant Extensive ST elevation suggests perica rditis vs injury. Low QRS voltages in limb leads Abnormal ECG Compared to prior electrocardiogram, ST elevation is present. Clinical correlation is indicated. PREVIOUS TRACING : 10/23/2017 20.53 DOCTOR: Rafal Carrera Interpretating Date/Time 10/31/2017 12:44:04
[2017-10-31] MEDS: Docusate Sodium 100 MG Capsule PO SCH (20:13)
[2017-11-01] MEDS: Insulin NovoLOG Aspart Correctional Sugar Inj SQ SCH ×2 (02:24→06:03)
[2017-11-01 06:45] LABS: Baso % (Auto) 0.2 % (0.0-2.0); Hematocrit 36.6 % (35.0-46.0); Lymph # (Auto) 1.6 th/mm3 (1.0-4.8); Lymph % (Auto) 9.2 % (9.0-44.0); Mean Corpuscular HGB Conc 32.9 % (32.0-36.0); Mean Corpuscular Hemoglobin 30.7 pg (27.0-34.0); Mean Corpuscular Volume 93.2 fL (80.0-100.0); Mean Platelet Volume 8.7 fL (7.0-11.0); Mono # (Auto) 1.3 th/mm3 (0.0-0.9); Mono % (Auto) 7.8 % (0.0-8.0); Neut # (Auto) 13.9 th/mm3 (1.8-7.7); Neut % (Auto) 82.8 % (16.0-70.0); Platelet Count 153 th/mm3 (150-450); Red Blood Count 3.92 mil/mm3 (4.00-5.30); Red Cell Distribution Width 13.8 % (11.6-17.2); White Blood Count 16.8 th/mm3 (4.0-11.0)
[2017-11-01 07:01] LABS: Albumin 3.1 g/dL (3.4-5.0); Anion Gap 7 meq/L (5-15); Aspartate Aminotransferase 24 U/L (15-37); Blood Urea Nitrogen 17 mg/dL (7-18); Calcium 8.2 mg/dL (8.5-10.1); Carbon Dioxide 25.7 meq/L (21.0-32.0); Chloride 105 meq/L (98-107); Glomerular Filtration Rate Greater Than 89 mL/min (>89); Glucose,Random 111 mg/dL (74-106); Magnesium 2.3 mg/dL (1.5-2.5); Potassium 4.5 meq/L (3.5-5.1); Sodium 138 meq/L (136-145)
[2017-11-01 07:05] LABS: Alanine Aminotransferase 9 U/L (10-53); Alkaline Phosphatase 51 U/L (45-117)
[2017-11-01] MEDS: Docusate Sodium 100 MG Capsule PO SCH ×2 (09:14→20:23)
[2017-11-01] MEDS: Multivitamin/Minerals Therapeutic Tablet PO SCH (09:14)
[2017-11-01] MEDS: Polyethylene Glycol 3350 17 GM Packet PO SCH (09:14)
--- NOTE | 2017-11-01 09:17 | P.PN ---
Subjective Interval history: Follow-up atrial septal defect repair October 31, 2017-patient seen and examined, no acute event overnight, vital stable. Afebrile November 01, 2017-patient seen and examined, states she had a rough night complaining of pain at the site of chest tube insertion. Currently afebrile. Physical Exam Vital signs: Vital Signs 10/31/17 11:00 10/31/17 11:51 10/31/17 12:00 Temperature 98.5 F 97.8 F Pulse Rate 60 61 54 L Respiratory Rate 14 16 Blood Pressure 103/66 84/50 L Pulse Oximetry 98 97 10/31/17 12:20 10/31/17 13:00 10/31/17 14:00 Temperature Pulse Rate 86 84 Respiratory Rate Blood Pressure 97/55 L Pulse Oximetry 10/31/17 15:00 10/31/17 16:00 10/31/17 17:00 Temperature 98.4 F Pulse Rate 64 66 68 Respiratory Rate 16 Blood Pressure 100/54 L Pulse Oximetry 98 10/31/17 18:00 10/31/17 19:00 10/31/17 20:00 Temperature 98.4 F Pulse Rate 74 73 75 Respiratory Rate 18 Blood Pressure 105/67 Pulse Oximetry 98 10/31/17 21:00 10/31/17 22:00 10/31/17 22:08 Temperature Pulse Rate 66 72 76 Respiratory Rate Blood Pressure Pulse Oximetry 96 10/31/17 23:00 11/01/17 00:00 11/01/17 01:00 Temperature 97.9 F Pulse Rate 67 66 62 Respiratory Rate 20 Blood Pressure 112/63 Pulse Oximetry 98 11/01/17 02:00 11/01/17 03:00 11/01/17 07:00 Temperature 98.5 F Pulse Rate 87 76 77 Respiratory Rate 20 Blood Pressure 101/66 Pulse Oximetry 96 11/01/17 07:59 11/01/17 08:45 Temperature 97.7 F Pulse Rate 77 83 Respiratory Rate 18 18 Blood Pressure 116/65 Pulse Oximetry 96 94 L Intake & Output 10/31/17 11/01/17 11/01/17 18:59 06:59 18:59 Intake Total 1650 / 1650 480 / 480 Output Total 160 / 160 1999 / 1999 Balance 1490 / 1490 -1520 / -1520 Weight 45 kg Intake: IV 450 / 450 Precedex Inj 200 MCG In NS Inj 0 / 0 48 ML @ 0.2 MCG/KG/HR 3.3 mls/ hr IV.CONT TITRATE PRN Rx#: [id number] NovoLIN R (IV Infusion) 100 0 / 0 UNIT In NS Inj 99 ML @ 3 UNITS/ HR 3 mls/hr IV.CONT TITRATE PRN Rx#:[id number] Ofirmev Inj 1,000 mg In 100 ml 100 / 100 @ 400 mls/hr IV.SIG Q6H DILLAN Rx# :[id number] Magnesium Sulfate Inj 2 GM In 100 / 100 NS Inj 96 ML @ 50 mls/hr IV.SIG PRN PRN Rx#:[id number] Vancomycin Inj 1,000 MG In NS 250 / 250 Inj 250 ML @ 250 mls/hr IV.SIG Q12H DILLAN Rx#:[id number] Oral 1200 / 1200 480 / 480 Output: Urine 500 / 500 Estimated Blood Loss 1400 / 1400 Chest Tube Drainage 160 / 160 100 / 100 Mediastinal 160 / 160 100 / 100 Other: # Voids 2 2 Date of Last Bowel Movement 10/28/17 # Bowel Movements 1 Narrative: GENERAL: NAD SKIN: Warm and dry. HEAD: Normocephalic. Atraumatic EYES: No scleral icterus. No injection or drainage. NECK: Supple, trachea midline. No JVD or lymphadenopathy. CARDIOVASCULAR: Regular rate and rhythm without gallops, or rubs. dressing in place RESPIRATORY: Breath sounds equal bilaterally. No accessory muscle use. Chest tube in place GASTROINTESTINAL: Abdomen soft, non-tender, nondistended. MUSCULOSKELETAL: No cyanosis, or edema. Sedated on ventilator at this time with endotracheal Neuro: Cranial nerves II through XII are grossly intact deep tendon reflexes 2- 4 upper extremity and lower extremity bilaterally moves all 4 extremities - Urinary Catheter Management Indwelling Temp Sensing Catheter Cath placed during this visit: yes, but has since been removed by the nurse Reason for continuing: Not indwelling catheter Insertion date: 10/30/17 Insertion time: 08:00 Removal date: 10/31/17 Removal time: 06:00 Results - Labs CBC & Chem 7: 11/01/17 06:15 11/01/17 06:15 Laboratory Results - last 24 hr 10/30/17 10/31/17 10/31/17 06:30 10:29 14:35 WBC RBC Hgb Hct MCV MCH MCHC RDW Plt Count MPV Neut % (Auto) Lymph % (Auto) [place] % (Auto) Eos % (Auto) Baso % (Auto) Neut # (Auto) Lymph # (Auto) [place] # (Auto) Eos # (Auto) Baso # (Auto) WBC Differential Differential Comment Sodium Potassium Chloride Carbon Dioxide Anion Gap BUN Creatinine Estimated GFR POC Glucose 116 H 105 Random Glucose Calcium Magnesium Total Bilirubin AST ALT Alkaline Phosphatase Total Protein Albumin MTS Gel Crossmatch See Detail 10/31/17 10/31/17 10/31/17 18:41 20:12 22:38 WBC RBC Hgb Hct MCV MCH MCHC RDW Plt Count MPV Neut % (Auto) Lymph % (Auto) [place] % (Auto) Eos % (Auto) Baso % (Auto) Neut # (Auto) Lymph # (Auto) [place] # (Auto) Eos # (Auto) Baso # (Auto) WBC Differential Differential Comment Sodium Potassium Chloride Carbon Dioxide Anion Gap BUN Creatinine Estimated GFR POC Glucose 148 H 148 H 220 H Random Glucose Calcium Magnesium Total Bilirubin AST ALT Alkaline Phosphatase Total Protein Albumin MTS Gel Crossmatch 11/01/17 11/01/17 11/01/17 06:15 06:15 08:10 WBC 16.8 H RBC 3.92 L Hgb 12.0 Hct 36.6 MCV 93.2 MCH 30.7 MCHC 32.9 RDW 13.8 Plt Count 153 MPV 8.7 Neut % (Auto) 82.8 H Lymph % (Auto) 9.2 [place] % (Auto) 7.8 Eos % (Auto) 0.0 Baso % (Auto) 0.2 Neut # (Auto) 13.9 H Lymph # (Auto) 1.6 [place] # (Auto) 1.3 H Eos # (Auto) 0.0 Baso # (Auto) 0.0 WBC Differential . Differential Comment Auto diff final Sodium 138 Potassium 4.5 Chloride 105 Carbon Dioxide 25.7 Anion Gap 7 BUN 17 Creatinine 0.63 Estimated GFR Greater than 89 POC Glucose 118 H Random Glucose 111 H Calcium 8.2 L D Magnesium 2.3 Total Bilirubin 0.7 AST 24 ALT 9 L Alkaline Phosphatase 51 Total Protein 6.0 L D Albumin 3.1 L MTS Gel Crossmatch Microbiology 10/29/17 16:23 Clean Catch Urine Urine Culture - Final - Procedures Date of procedure: 10/30/17 ASD repair with a pericardial patch Implants: Bovine pericardium patch Assessment and Plan - Assessment (1) ASD (atrial septal defect) Code(s): Q21.1 - Atrial septal defect Status: Acute - Plan 26-year-old female with ASD Right ventricular dilation Right ventricular volume overload Pulmonary hypertension (40-45mmHg). - Echo shows RV volume overload. Qp/Qs > 1.5. - CT chest did not reveal any evidence of anomalous pulm vein. - MOISES shows ASD 2.2 cm with bidirectional shunting. - s/p ASD repair October 30, 2017 by cardiothoracic surgery - Chest tube management per cardiothoracic surgery. Plan for removal of chest tube today November 01, 2017 - Continue current treatment. PT to treat and eval -
[2017-11-01] MEDS ORDERED: Insulin NovoLOG Aspart Correctional Sugar Inj SQ SCH (12:00)
--- NOTE | 2017-11-01 14:56 | P.PNCV ---
- Note Subjective/Hospital Course: 26-year-old female who presented to the emergency department, reported palpitations while at work, felt very faint. 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 Supposedly had a history of some type of mitral valve prolapse and was told that she also had a septal defect, which was told it was closed as a child. She states she was born in [facility], adopted. Apparently did not have a lot of healthcare following as a child. She did admit to having vaccines as needed as a child, but to her understanding that the septal defect had closed. She was seen by _Jocelin ____ approximately 4 years ago, was told she had a mitral valve prolapse and that the septal defect at that time had also closed. Prior to that, she had been in the midst of changing a physician when they noted the heart murmur. She has been getting palpitations on a regular basis, mainly at night and at rest, they last seconds. She states it feels like an air bubble. She rode her bike to work on Monday and when she developed palpitations which lasted over 2 hours, felt faint. She did not have anybody to bring her, so they called the ambulance. She underwent CT chest, which showed no evidence to suggest partial anomalous pulmonary vein. Heart size normal limits. She underwent transesophageal echo preceded by a regular trans-echocardiogram. The ejection fraction 60-65%, atrial septal defect present measuring 2.2 cm with bidirectional shunting. Mild tricuspid valve regurgitation, with some mild pulmonary hypertension of 40-50 mmHg. Right ventricle was severely dilated and the right ventricular systolic function moderately decreased. We were consulted in regards to atrial septal defect. 10/27 echo has been reviewed by Dr Mackey plan is for ASD repair on Monday 10/30 no preop BB 2/2 labile low BP surgery : ASD repair with a pericardial patch Implants: Bovine pericardium patch extubated after surgery 2000cc crystalloid, 730cc cell saver 10/31 EKG shows pericarditis up in chair, eval for removal of chest tube today pulm toileting , pain control transfer to stepdown unit on Toradol 11/01 chest tube dc without difficulty f/u CXR in am eval for dc in am continue pulm toileting sternal incision intact Objective: Vital Signs - 24 hr 10/31/17 15:00 10/31/17 16:00 10/31/17 17:00 Temperature 98.4 F Pulse Rate 64 66 68 Respiratory Rate 16 Blood Pressure 100/54 L Pulse Oximetry 98 10/31/17 18:00 10/31/17 19:00 10/31/17 20:00 Temperature 98.4 F Pulse Rate 74 73 75 Respiratory Rate 18 Blood Pressure 105/67 Pulse Oximetry 98 10/31/17 21:00 10/31/17 22:00 10/31/17 22:08 Temperature Pulse Rate 66 72 76 Respiratory Rate Blood Pressure Pulse Oximetry 96 10/31/17 23:00 11/01/17 00:00 11/01/17 01:00 Temperature 97.9 F Pulse Rate 67 66 62 Respiratory Rate 20 Blood Pressure 112/63 Pulse Oximetry 98 11/01/17 02:00 11/01/17 03:00 11/01/17 07:00 Temperature 98.5 F Pulse Rate 87 76 77 Respiratory Rate 20 Blood Pressure 101/66 Pulse Oximetry 96 11/01/17 07:59 11/01/17 08:00 11/01/17 08:45 Temperature 97.7 F Pulse Rate 77 76 83 Respiratory Rate 18 18 Blood Pressure 116/65 Pulse Oximetry 96 94 L 11/01/17 09:00 11/01/17 10:00 11/01/17 10:56 Temperature 98.2 F Pulse Rate 82 80 76 Respiratory Rate 18 Blood Pressure 113/68 Pulse Oximetry 97 11/01/17 11:00 11/01/17 14:35 Temperature Pulse Rate 80 72 Respiratory Rate 18 Blood Pressure Pulse Oximetry GENERAL: A&O x 3 SKIN: Warm and dry. incision intact and well approximated to chest HEAD: Normocephalic. EYES: No scleral icterus. No injection or drainage. NECK: Supple, trachea midline. No JVD or lymphadenopathy. CARDIOVASCULAR: Regular rate and rhythm without murmurs, gallops, or slight rub RESPIRATORY: Breath sounds equal bilaterally. No accessory muscle use. GASTROINTESTINAL: Abdomen soft, non-tender, nondistended. MUSCULOSKELETAL: No cyanosis, or edema. BACK: Nontender without obvious deformity. No CVA tenderness. Labs: Laboratory Results - last 12 hr 10/30/17 11/01/17 11/01/17 06:30 06:15 06:15 WBC 16.8 H RBC 3.92 L Hgb 12.0 Hct 36.6 MCV 93.2 MCH 30.7 MCHC 32.9 RDW 13.8 Plt Count 153 MPV 8.7 Neut % (Auto) 82.8 H Lymph % (Auto) 9.2 [place] % (Auto) 7.8 Eos % (Auto) 0.0 Baso % (Auto) 0.2 Neut # (Auto) 13.9 H Lymph # (Auto) 1.6 [place] # (Auto) 1.3 H Eos # (Auto) 0.0 Baso # (Auto) 0.0 WBC Differential . Differential Comment Auto diff final Sodium 138 Potassium 4.5 Chloride 105 Carbon Dioxide 25.7 Anion Gap 7 BUN 17 Creatinine 0.63 Estimated GFR Greater than 89 POC Glucose Random Glucose 111 H Calcium 8.2 L D Magnesium 2.3 Total Bilirubin 0.7 AST 24 ALT 9 L Alkaline Phosphatase 51 Total Protein 6.0 L D Albumin 3.1 L MTS Gel Crossmatch See Detail 11/01/17 08:10 WBC RBC Hgb Hct MCV MCH MCHC RDW Plt Count MPV Neut % (Auto) Lymph % (Auto) [place] % (Auto) Eos % (Auto) Baso % (Auto) Neut # (Auto) Lymph # (Auto) [place] # (Auto) Eos # (Auto) Baso # (Auto) WBC Differential Differential Comment Sodium Potassium Chloride Carbon Dioxide Anion Gap BUN Creatinine Estimated GFR POC Glucose 118 H Random Glucose Calcium Magnesium Total Bilirubin AST ALT Alkaline Phosphatase Total Protein Albumin MTS Gel Crossmatch Result Diagrams: 11/01/17 06:15 11/01/17 06:15 Telemetry: NSR - Plan (1) Arrhythmia (2) ASD (atrial septal defect) Plan: (4) Status post atrial septal defect repair Plan: continue ASA, pain control Toradol pulm toileting OOB ambulate chest tube dc without difficulty (1) Arrhythmia Qualifiers: Arrhythmia type: unspecified cardiac arrhythmia Qualified Code(s): I49.9 - Cardiac arrhythmia, unspecified
--- NOTE | 2017-11-02 06:20 | XR ---
EXAM DATE: 11/02/2017 5:51 AM EDT AGE/SEX: 26 years / Female INDICATIONS: Shortness of breath, possible pneumothorax. CLINICAL DATA: This is the patient's subsequent encounter. Patient reports that signs and symptoms h ave been present for 4 - 6 days and indicates a pain score of 2/10. MEDICAL/SURGICAL HISTORY: None. . Thoracic surgery. COMPARISON: [facility] – [place], CHEST 1V SINGLE AP, 10/31/2017. . FINDINGS: The patient is status post sternotomy. There is a right internal jugular central line in good positio n. There is increased interstitial markings at the mid and lower lungs. There is further alveolar den sity seen at the left base with silhouetting the left hemidiaphragm. The heart size is normal. CONCLUSION: Increased interstitial markings likely related to edema. Left base atelectasis, consolidation and/or effusion. A pneumothorax is not seen. Electronically signed by: Jim Bains MD 11/02/2017 6:19 AM EDT
[2017-11-02] MEDS: Docusate Sodium 100 MG Capsule PO SCH (08:50)
[2017-11-02] MEDS: Multivitamin/Minerals Therapeutic Tablet PO SCH (08:51)
[2017-11-02] MEDS: Polyethylene Glycol 3350 17 GM Packet PO SCH (08:51)
--- NOTE | 2017-11-02 11:45 | P.PN ---
Subjective Interval history: Follow-up atrial septal defect repair October 31, 2017-patient seen and examined, no acute event overnight, vital stable. Afebrile November 01, 2017-patient seen and examined, states she had a rough night complaining of pain at the site of chest tube insertion. Currently afebrile. November 02, 2017-patient seen and examined she was up and ambulated. Chest tube was discontinued yesterday and she denies any shortness of breath. No bowel movement yet Physical Exam Vital signs: Vital Signs 11/01/17 12:00 11/01/17 13:00 11/01/17 14:00 Temperature Pulse Rate 78 74 70 Respiratory Rate Blood Pressure Pulse Oximetry 11/01/17 14:35 11/01/17 15:00 11/01/17 16:00 Temperature 98.5 F Pulse Rate 72 83 88 Respiratory Rate 18 18 Blood Pressure 117/69 Pulse Oximetry 95 11/01/17 17:00 11/01/17 18:00 11/01/17 19:00 Temperature 98.6 F Pulse Rate 84 82 81 Respiratory Rate 16 Blood Pressure 111/69 Pulse Oximetry 99 11/01/17 20:00 11/01/17 20:38 11/01/17 21:00 Temperature Pulse Rate 80 90 78 Respiratory Rate 16 Blood Pressure Pulse Oximetry 98 11/01/17 22:00 11/01/17 23:00 11/02/17 00:00 Temperature 98.1 F Pulse Rate 75 84 83 Respiratory Rate 18 Blood Pressure 113/67 Pulse Oximetry 98 11/02/17 01:00 11/02/17 02:00 11/02/17 03:00 Temperature 98.4 F Pulse Rate 80 83 69 Respiratory Rate 18 Blood Pressure 115/72 Pulse Oximetry 99 11/02/17 04:00 11/02/17 05:00 11/02/17 06:00 Temperature Pulse Rate 72 76 80 Respiratory Rate Blood Pressure Pulse Oximetry 11/02/17 06:38 11/02/17 07:00 11/02/17 09:10 Temperature 98 F Pulse Rate 78 99 H Respiratory Rate 16 18 14 Blood Pressure 108/66 Pulse Oximetry 100 99 Intake & Output 11/01/17 11/02/17 11/02/17 18:59 06:59 18:59 Intake Total 840 / 840 720 / 720 Output Total 300 / 300 800 / 800 Balance 540 / 540 -80 / -80 Weight 45.5 kg Intake: Oral 840 / 840 720 / 720 Output: Urine 300 / 300 800 / 800 Other: # Voids 2 Narrative: GENERAL: NAD SKIN: Warm and dry. HEAD: Normocephalic. Atraumatic EYES: No scleral icterus. No injection or drainage. NECK: Supple, trachea midline. No JVD or lymphadenopathy. CARDIOVASCULAR: Regular rate and rhythm without gallops, or rubs. dressing in place RESPIRATORY: Breath sounds equal bilaterally. No accessory muscle use. GASTROINTESTINAL: Abdomen soft, non-tender, nondistended. MUSCULOSKELETAL: No cyanosis, or edema. Sedated on ventilator at this time with endotracheal Neuro: Cranial nerves II through XII are grossly intact deep tendon reflexes 2- 4 upper extremity and lower extremity bilaterally moves all 4 extremities - Urinary Catheter Management Indwelling Temp Sensing Catheter Cath placed during this visit: yes, but has since been removed by the nurse Reason for continuing: Not indwelling catheter Insertion date: 10/30/17 Insertion time: 08:00 Removal date: 10/31/17 Removal time: 06:00 Results - Labs CBC & Chem 7: 11/01/17 06:15 11/01/17 06:15 - Imaging Impressions Chest X-Ray 11/02/17 06:00 CONCLUSION: Increased interstitial markings likely related to edema. Left base atelectasis, consolidation and/or effusion. A pneumothorax is not seen. - Procedures Date of procedure: 10/30/17 ASD repair with a pericardial patch Implants: Bovine pericardium patch Assessment and Plan - Assessment (1) ASD (atrial septal defect) Code(s): Q21.1 - Atrial septal defect Status: Acute - Plan 26-year-old female with ASD Right ventricular dilation Right ventricular volume overload Pulmonary hypertension (40-45mmHg). - Echo shows RV volume overload. Qp/Qs > 1.5. - CT chest did not reveal any evidence of anomalous pulm vein. - MOISES shows ASD 2.2 cm with bidirectional shunting. - s/p ASD repair October 30, 2017 by cardiothoracic surgery - Chest tube management per cardiothoracic surgery. Chest tube removed November 01, 2017 - Continue current treatment. PT to treat and eval -Likely discharge home today with home health care
[2017-11-02] MEDS ORDERED: Furosemide 20 MG Tablet PO ONE (15:21)
--- NOTE | 2017-11-02 15:24 | P.PNCV ---
- Note Subjective/Hospital Course: 26-year-old female who presented to the emergency department, reported palpitations while at work, felt very faint. 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 Supposedly had a history of some type of mitral valve prolapse and was told that she also had a septal defect, which was told it was closed as a child. She states she was born in [facility], adopted. Apparently did not have a lot of healthcare following as a child. She did admit to having vaccines as needed as a child, but to her understanding that the septal defect had closed. She was seen by _Jocelin ____ approximately 4 years ago, was told she had a mitral valve prolapse and that the septal defect at that time had also closed. Prior to that, she had been in the midst of changing a physician when they noted the heart murmur. She has been getting palpitations on a regular basis, mainly at night and at rest, they last seconds. She states it feels like an air bubble. She rode her bike to work on Monday and when she developed palpitations which lasted over 2 hours, felt faint. She did not have anybody to bring her, so they called the ambulance. She underwent CT chest, which showed no evidence to suggest partial anomalous pulmonary vein. Heart size normal limits. She underwent transesophageal echo preceded by a regular trans-echocardiogram. The ejection fraction 60-65%, atrial septal defect present measuring 2.2 cm with bidirectional shunting. Mild tricuspid valve regurgitation, with some mild pulmonary hypertension of 40-50 mmHg. Right ventricle was severely dilated and the right ventricular systolic function moderately decreased. We were consulted in regards to atrial septal defect. 10/27 echo has been reviewed by Dr Mackey plan is for ASD repair on Monday 10/30 no preop BB 2/2 labile low BP surgery : ASD repair with a pericardial patch Implants: Bovine pericardium patch extubated after surgery 2000cc crystalloid, 730cc cell saver 10/31 EKG shows pericarditis up in chair, eval for removal of chest tube today pulm toileting , pain control transfer to stepdown unit on Toradol 11/01 chest tube dc without difficulty f/u CXR in am eval for dc in am continue pulm toileting sternal incision intact 11/02 gentle diuresis continue pulm toileting + BM, no PTX on CXR ok to dc home from [facility] ASA, pain control Objective: Vital Signs - 24 hr 11/01/17 16:00 11/01/17 17:00 11/01/17 18:00 Temperature Pulse Rate 88 84 82 Respiratory Rate Blood Pressure Pulse Oximetry 11/01/17 19:00 11/01/17 20:00 11/01/17 20:38 Temperature 98.6 F Pulse Rate 81 80 90 Respiratory Rate 16 16 Blood Pressure 111/69 Pulse Oximetry 99 98 11/01/17 21:00 11/01/17 22:00 11/01/17 23:00 Temperature 98.1 F Pulse Rate 78 75 84 Respiratory Rate 18 Blood Pressure 113/67 Pulse Oximetry 98 11/02/17 00:00 11/02/17 01:00 11/02/17 02:00 Temperature Pulse Rate 83 80 83 Respiratory Rate Blood Pressure Pulse Oximetry 11/02/17 03:00 11/02/17 04:00 11/02/17 05:00 Temperature 98.4 F Pulse Rate 69 72 76 Respiratory Rate 18 Blood Pressure 115/72 Pulse Oximetry 99 11/02/17 06:00 11/02/17 06:38 11/02/17 07:00 Temperature 98 F Pulse Rate 80 78 Respiratory Rate 16 18 Blood Pressure 108/66 Pulse Oximetry 100 11/02/17 09:10 Temperature Pulse Rate 99 H Respiratory Rate 14 Blood Pressure Pulse Oximetry 99 GENERAL: A&O x 3 SKIN: Warm and dry. sternal incision intact and well approximated HEAD: Normocephalic. EYES: No scleral icterus. No injection or drainage. NECK: Supple, trachea midline. No JVD or lymphadenopathy. CARDIOVASCULAR: Regular rate and rhythm without murmurs, gallops, or rubs. RESPIRATORY: Breath sounds equal bilaterally. No accessory muscle use. slightly diminished in bases GASTROINTESTINAL: Abdomen soft, non-tender, nondistended. MUSCULOSKELETAL: No cyanosis, or edema. BACK: Nontender without obvious deformity. No CVA tenderness. Result Diagrams: 11/01/17 06:15 11/01/17 06:15 - Plan (1) Arrhythmia (2) ASD (atrial septal defect) Plan: (4) Status post atrial septal defect repair Plan: continue ASA, pain control pulm toileting OOB ok to dc from [facility] standpoint (1) Arrhythmia Qualifiers: Arrhythmia type: unspecified cardiac arrhythmia Qualified Code(s): I49.9 - Cardiac arrhythmia, unspecified
[2017-11-02 18:46] VITALS: RESP 18
[2017-11-03] MEDS: Docusate Sodium 100 MG Capsule PO SCH ×2 (02:10→08:05)
[2017-11-03 07:41] VITALS: PULSE 80
[2017-11-03] MEDS: Polyethylene Glycol 3350 17 GM Packet PO SCH (08:05)
[2017-11-03] MEDS: Multivitamin/Minerals Therapeutic Tablet PO SCH (08:05)
[2017-11-03 08:24] VITALS: BP 110/62; TEMP 98; O2SAT 98
--- NOTE | 2017-11-03 08:43 | P.PN ---
Subjective Interval history: Follow-up atrial septal defect repair October 31, 2017-patient seen and examined, no acute event overnight, vital stable. Afebrile November 01, 2017-patient seen and examined, states she had a rough night complaining of pain at the site of chest tube insertion. Currently afebrile. November 02, 2017-patient seen and examined she was up and ambulated. Chest tube was discontinued yesterday and she denies any shortness of breath. No bowel movement yet 11/03/17-Patient seen and examined; she had a Bowel movement, and looking forward going home today Physical Exam Vital signs: Vital Signs 11/02/17 09:00 11/02/17 09:10 11/02/17 10:00 Temperature Pulse Rate 99 H 99 H 80 Respiratory Rate 14 Blood Pressure Pulse Oximetry 99 11/02/17 11:00 11/02/17 15:00 11/02/17 19:00 Temperature 98 F 98 F Pulse Rate 80 75 98 H Respiratory Rate 14 18 Blood Pressure 103/48 L 110/72 Pulse Oximetry 100 100 11/02/17 20:00 11/02/17 21:00 11/02/17 22:00 Temperature Pulse Rate 80 82 82 Respiratory Rate Blood Pressure Pulse Oximetry 11/02/17 23:00 11/03/17 00:00 11/03/17 01:00 Temperature 98.7 F Pulse Rate 72 74 74 Respiratory Rate Blood Pressure 107/56 L Pulse Oximetry 99 11/03/17 02:00 11/03/17 03:00 11/03/17 04:00 Temperature 98.4 F Pulse Rate 65 72 72 Respiratory Rate Blood Pressure 114/70 Pulse Oximetry 99 11/03/17 05:00 11/03/17 06:00 11/03/17 07:00 Temperature 98 F Pulse Rate 65 87 72 Respiratory Rate 18 Blood Pressure 110/62 Pulse Oximetry 98 11/03/17 08:00 11/03/17 08:27 Temperature Pulse Rate 80 Respiratory Rate 18 Blood Pressure Pulse Oximetry Intake & Output 11/02/17 11/03/17 11/03/17 18:59 06:59 18:59 Intake Total 750 / 750 Output Total 1000 / 1000 Balance -250 / -250 Weight 47 kg Intake: Oral 750 / 750 Output: Urine 1000 / 1000 Other: Date of Last Bowel Movement 10/28/17 10/28/17 Narrative: GENERAL: NAD SKIN: Warm and dry. HEAD: Normocephalic. Atraumatic EYES: No scleral icterus. No injection or drainage. NECK: Supple, trachea midline. No JVD or lymphadenopathy. CARDIOVASCULAR: Regular rate and rhythm without gallops, or rubs. dressing in place RESPIRATORY: Breath sounds equal bilaterally. No accessory muscle use. GASTROINTESTINAL: Abdomen soft, non-tender, nondistended. MUSCULOSKELETAL: No cyanosis, or edema. Sedated on ventilator at this time with endotracheal Neuro: Cranial nerves II through XII are grossly intact deep tendon reflexes 2- 4 upper extremity and lower extremity bilaterally moves all 4 extremities - Urinary Catheter Management Indwelling Temp Sensing Catheter Cath placed during this visit: yes, but has since been removed by the nurse Reason for continuing: Not indwelling catheter Insertion date: 10/30/17 Insertion time: 08:00 Removal date: 10/31/17 Removal time: 06:00 Results - Labs CBC & Chem 7: 11/01/17 06:15 11/01/17 06:15 - Procedures Date of procedure: 10/30/17 ASD repair with a pericardial patch Implants: Bovine pericardium patch Assessment and Plan - Assessment (1) ASD (atrial septal defect) Code(s): Q21.1 - Atrial septal defect Status: Acute - Plan 26-year-old female with ASD Right ventricular dilation Right ventricular volume overload Pulmonary hypertension (40-45mmHg). - Echo shows RV volume overload. Qp/Qs > 1.5. - CT chest did not reveal any evidence of anomalous pulm vein. - MOISES shows ASD 2.2 cm with bidirectional shunting. - s/p ASD repair October 30, 2017 by cardiothoracic surgery - Chest tube management per cardiothoracic surgery. Chest tube removed November 01, 2017 - Continue current treatment. PT to treat and eval
--- NOTE | 2017-11-03 08:45 | P.DS ---
Date of admission: 10/25/17 17:02 Primary care physician: UNKNOWN Anticipated date of discharge: 11/03/17 Brief History from admission: 26-year-old female with a past medical history significant for mitral valve prolapse and a "abnormal EKG" 4 years ago presents the emergency department for evaluation of palpitations. The patient reports she has palpitations for approximately 2 hours, felt faint and decided to come to the emergency room for further evaluation. The patient had a MOISES 4 years ago which was normal and she was instructed to follow-up with the senior net architect however she was never able to do so. The patient denies having any chest pain or shortness of breath. No abdominal pain. No nausea/vomiting. DS: Diagnosis - Discharge Diagnosis (1) ASD (atrial septal defect) Status: Acute DS: Medications - Discharge Medications Prescriptions: aspirin 81 mg PO DAILY #30 tab cyclobenzaprine 5 mg PO Q8H PRN #30 tab PRN Reason: muscle spasm [id number] [Thera M Plus (ferrous fumarat)] 1 tab PO DAILY # 30 tab oxycodone-acetaminophen 1 tab PO Q4H PRN #35 tab PRN Reason: Pain Scale 1 To 5 DS: Summary Hospital Course: While in the hospital, the patient was treated for : ASD Right ventricular dilation Right ventricular volume overload Pulmonary hypertension (40-45mmHg). - Echo shows RV volume overload. Qp/Qs > 1.5. - CT chest did not reveal any evidence of anomalous pulm vein. - MOISES shows ASD 2.2 cm with bidirectional shunting. - s/p ASD repair October 30, 2017 by cardiothoracic surgery - Chest tube management per cardiothoracic surgery. Chest tube removed November 01, 2017 - Continue current treatment. PT to treat and eval - Time Spent with Patient Total time spent providing and/or coordinating discharge services: Greater than 30 minutes - Quality: VTE Deep Vein Thrombosis/Pulmonary Embolism Present on Admission: No Exam Vital signs: Vital Signs 11/02/17 09:00 11/02/17 09:10 11/02/17 10:00 Temperature Pulse Rate 99 H 99 H 80 Respiratory Rate 14 Blood Pressure Pulse Oximetry 99 11/02/17 11:00 11/02/17 15:00 11/02/17 19:00 Temperature 98 F 98 F Pulse Rate 80 75 98 H Respiratory Rate 14 18 Blood Pressure 103/48 L 110/72 Pulse Oximetry 100 100 11/02/17 20:00 11/02/17 21:00 11/02/17 22:00 Temperature Pulse Rate 80 82 82 Respiratory Rate Blood Pressure Pulse Oximetry 11/02/17 23:00 11/03/17 00:00 11/03/17 01:00 Temperature 98.7 F Pulse Rate 72 74 74 Respiratory Rate Blood Pressure 107/56 L Pulse Oximetry 99 11/03/17 02:00 11/03/17 03:00 11/03/17 04:00 Temperature 98.4 F Pulse Rate 65 72 72 Respiratory Rate Blood Pressure 114/70 Pulse Oximetry 99 11/03/17 05:00 11/03/17 06:00 11/03/17 07:00 Temperature 98 F Pulse Rate 65 87 72 Respiratory Rate 18 Blood Pressure 110/62 Pulse Oximetry 98 11/03/17 08:00 11/03/17 08:27 Temperature Pulse Rate 80 Respiratory Rate 18 Blood Pressure Pulse Oximetry Intake & Output 11/02/17 11/03/17 11/03/17 18:59 06:59 18:59 Intake Total 750 / 750 Output Total 1000 / 1000 Balance -250 / -250 Weight 47 kg Intake: Oral 750 / 750 Output: Urine 1000 / 1000 Other: Date of Last Bowel Movement 10/28/17 10/28/17 Narrative: GENERAL: NAD SKIN: Warm and dry. HEAD: Normocephalic. EYES: No scleral icterus. No injection or drainage. NECK: Supple, trachea midline. No JVD or lymphadenopathy. CARDIOVASCULAR: Regular rate and rhythm without murmurs, gallops, or rubs. RESPIRATORY: Breath sounds equal bilaterally. No accessory muscle use. GASTROINTESTINAL: Abdomen soft, non-tender, nondistended. MUSCULOSKELETAL: No cyanosis, or edema. BACK: Nontender without obvious deformity. No CVA tenderness. Results Procedures completed during hospitalization: Date of procedure: 10/30/17 ASD repair with a pericardial patch Implants: Bovine pericardium patch - Impressions ITS Impressions Chest CT 10/25/17 00:00 CONCLUSION: 1. No evidence to suggest partial anomalous pulmonary vein. 2. The heart size is at the upper limits of normal. Chest X-Ray 11/02/17 06:00 CONCLUSION: Increased interstitial markings likely related to edema. Left base atelectasis, consolidation and/or effusion. A pneumothorax is not seen. Discharge Plan - Discharge Disposition Patient Disposition: W/Home Health Service - Discharge Condition Condition: Good - Discharge Order Discharge Orders: Discharge Order (Routine); Ordered 11/03/17 Ordered By: Luther Soto - Physicians Team Primary Care Provider: UNKNOWN, Attending Provider: Luther Soot Other Providers: Twan Carpenter MD ; Darcie Mackey MD ; [facility]
== END 2017-11-03 10:28 | disposition home health service (06) ==
LOC: NEPD 19:49 → NEDA 19:49 → NEPHCDU 10-24 01:43 → HCPC 10-27 22:44 → HCVI 10-30 10:36 → HCPC 10-31 11:20
PROVIDERS: ADMIT Hospitalist; ATTEND Hospitalist